=== PATIENT | male | born 1995 | race American Indian/Alaskan Native ===

== ENCOUNTER 2018-05-06 19:16 | Emergency (ER) | payer MEDICARE ==
[2018-05-06 19:42] VITALS: BP 128/86
[2018-05-06] MEDS ORDERED: PROVENTIL IH ONE (23:55)
--- NOTE | 2018-05-07 00:15 | Emergency Department Report ---
ED Shortness of Breath HPI - General Chief Complaint: Dyspnea/Respdistress Stated Complaint: SHORTNESS OF BREATH Time Seen by Provider: 05/06/18 23:56 Source: patient Mode of arrival: Ambulatory Limitations: No Limitations - History of Present Illness Initial Comments: Patient is a 22-year-old -Malaysian male with history of shortness of breath 3 days with wheezing visit patient is on albuterol inhaler for past month there is no fever no chills chest pain no nausea vomiting symptoms are exacerbated by environmental exposure symptoms are relieved by rest patient states minimal wheezing at this time to 2/ 10 however he cannot get albuterol inhaler until tomorrow Complaint: shortness of breath Onset/Timin -: week(s) Severity: mild, moderate Pain Scale: 1 Consistency: constant Improves With: rest Worsens With: other (environmental exposure ) Known History Of: asthma, other (bronchitis) Associated Symptoms: cough Treatments Prior to Arrival: none - Related Data Home Oxygen Therapy: No Previous Rx's Medication Instructions Recorded Last Taken Type ALBUTEROL Inhaler(NF) [VENTOLIN 1 puff IH QID PRN #1 inha 05/07/18 Unknown Rx Inhaler(NF)] Benzonatate [Tessalon Perle] 100 mg PO TID PRN #30 capsule 05/07/18 Unknown Rx predniSONE [Deltasone] 20 mg PO QDAY #5 tab 05/07/18 Unknown Rx Allergies Allergy/AdvReac Type Severity Reaction Status Date / Time No Known Allergies Allergy Unverified 05/06/18 19:42 ED Review of Systems ROS: Stated complaint: SHORTNESS OF BREATH Other details as noted in HPI Constitutional: denies: chills, fever Eyes: denies: eye pain, eye discharge, vision change ENT: congestion. denies: ear pain, throat pain Respiratory: cough, shortness of breath, wheezing Cardiovascular: denies: chest pain, palpitations Endocrine: no symptoms reported Gastrointestinal: denies: abdominal pain, nausea, diarrhea Genitourinary: denies: urgency, dysuria Musculoskeletal: denies: back pain, joint swelling, arthralgia Skin: denies: rash, lesions Neurological: denies: headache, weakness, paresthesias Psychiatric: denies: anxiety, depression Hematological/Lymphatic: denies: easy bleeding, easy bruising ED Past Medical Hx - Past Medical History Hx Psychiatric Treatment: Yes (bipolar,schizophrinic,) Hx Asthma: Yes - Social History Smoking Status: Current Every Day Smoker Substance Use Type: None - Medications Home Medications: Home Medications Medication Instructions Recorded Confirmed Last Taken Type ALBUTEROL Inhaler(NF) [VENTOLIN 1 puff IH QID PRN #1 inha 05/07/18 Unknown Rx Inhaler(NF)] Benzonatate [Tessalon Perle] 100 mg PO TID PRN #30 capsule 05/07/18 Unknown Rx predniSONE [Deltasone] 20 mg PO QDAY #5 tab 05/07/18 Unknown Rx ED Physical Exam - General Limitations: No Limitations General appearance: alert, in no apparent distress - Head Head exam: Present: atraumatic, normocephalic - Eye Eye exam: Present: normal appearance - ENT ENT exam: Present: normal orophraynx, mucous membranes moist, TM's normal bilaterally - Expanded ENT Exam Expanded Ear exam: Present: normal external inspection Mouth exam: Present: normal external inspection Teeth exam: Present: normal inspection Throat exam: Negative: tonsillar erythema, tonsillomegaly, tonsillar exudate, R peritonsillar mass, L peritonsillar mass - Neck Neck exam: Present: normal inspection, full ROM. Absent: tenderness, lymphadenopathy, thyromegaly - Respiratory Respiratory exam: Present: normal lung sounds bilaterally. Absent: respiratory distress, wheezes, stridor, chest wall tenderness - Cardiovascular Cardiovascular Exam: Present: regular rate, normal rhythm. Absent: systolic murmur, diastolic murmur, rubs, gallop - GI/Abdominal GI/Abdominal exam: Present: soft, normal bowel sounds. Absent: tenderness, bruit, hernia - Rectal Rectal exam: Present: deferred - Extremities Exam Extremities exam: Present: normal inspection - Back Exam Back exam: Present: normal inspection - Neurological Exam Neurological exam: Present: alert, oriented X3 - Psychiatric Psychiatric exam: Present: normal affect, normal mood - Skin Skin exam: Present: warm, dry, intact, normal color. Absent: rash ED Course Vital Signs 05/06/18 19:38 Temperature 98.7 F Pulse Rate 101 H Respiratory 18 Rate Blood Pressure 128/86 O2 Sat by Pulse 98 Oximetry ED Medical Decision Making - Medical Decision Making This is mild asthma versus bronchitis is no fever no chills no dyspnea on exertion this time also clear bilaterally no wheezing patient ambulated with provider from room to the ED back to room no increased shortness of breath plan albuterol neb 1 DC to home with refill of albuterol and prednisone burst patient will follow up PCP in 2-3 days for asthma management patient is currently NO 3 and laboratory with no acute distress at this time this is not an asthma attack Critical care attestation.: If time is entered above; I have spent that time in minutes in the direct care of this critically ill patient, excluding procedure time. ED Disposition Clinical Impression: Bronchitis, Medication refill Disposition: DC-01 TO HOME OR SELFCARE Is pt being admited?: No Does the pt Need Aspirin: No Condition: Good Instructions: Chronic Bronchitis (ED), Acute Bronchitis (ED) Prescriptions: ALBUTEROL Inhaler(NF) [VENTOLIN Inhaler(NF)] 1 puff IH QID PRN #1 inha PRN Reason: wheezing shortness of breath Benzonatate [Tessalon Perle] 100 mg PO TID PRN #30 capsule PRN Reason: cough predniSONE [Deltasone] 20 mg PO QDAY #5 tab Referrals: [facility] [Outside] - 3-5 Days Forms: Work/School Release Form(ED) Time of Disposition: 00:21
== END 2018-05-07 00:50 | disposition home or self-care (01) ==
LOC: ED 19:16
DX: J45.909 Unspecified asthma, uncomplicated (principal); Z76.0 Encounter for issue of repeat prescription; F31.9 Bipolar disorder, unspecified; F20.9 Schizophrenia, unspecified; F17.200 Nicotine dependence, unspecified, uncomplicated; Z79.899 Other long term (current) drug therapy
CPT/HCPCS: 94640

== ENCOUNTER 2018-09-15 17:41 | Emergency (ER) | payer MEDICARE ==
[2018-09-15 17:54] VITALS: BP 132/75
--- NOTE | 2018-09-15 20:06 | Emergency Department Report ---
ED Abdominal Pain HPI - General Chief Complaint: Abdominal Pain Stated Complaint: STOMACH PAIN Time Seen by Provider: 09/15/18 19:58 Source: patient Mode of arrival: Ambulatory Limitations: No Limitations - History of Present Illness Initial Comments: 23-year-old -Djib[place]ian male with a past medical history of HIV for the last 23 years comes in today for complaint of pain to the stomach that is diffuse and started at 5 PM today. Patient reports he is taking nothing for the pain. Patient reports that he saw his primary care provider did not have pain at that time. Patient reports he he has no diarrhea no nausea no vomiting but reports he has not had a bowel movement in a week. Patient reports this had similar issues in the past like this and is because he has not taken his HIV medication. Patient reports has not taken his HIV medicine today but took it yesterday. Patient does admit that he is not compliant on his HIV meds. Patient is unaware of his last CD4 count or his viral load. Patient reports he has no pain at this time. Does report his pain is intermittent. MD Complaint: abdominal pain -: This evening (1700) Location: diffuse Severity: mild (3/10) Severity scale (0 -10): 3 Quality: aching Improves With: nothing Worsens With: nothing Associated Symptoms: denies other symptoms Treatments Prior to Arrival: other (none) - Related Data Previous Rx's Medication Instructions Recorded Last Taken Type ALBUTEROL Inhaler(NF) [VENTOLIN 1 puff IH QID PRN #1 inha 05/07/18 Unknown Rx Inhaler(NF)] Benzonatate [Tessalon Perle] 100 mg PO TID PRN #30 capsule 05/07/18 Unknown Rx predniSONE [Deltasone] 20 mg PO QDAY #5 tab 05/07/18 Unknown Rx ALBUTEROL Inhaler (OR & NICU) 2 puff IH Q6H PRN #1 inhalation 05/10/18 Unknown Rx [ProAir HFA Inhaler] methylPREDNISolone [Medrol Dose 4 mg PO DAILY #1 tab.ds.pk 05/10/18 Unknown Rx Jaylen] HYDROcodone/APAP 5-325 [[place]ellington 1 each PO Q6HR PRN #10 tablet 08/03/18 Unknown Rx 5/325] Sulfamethoxazole/Trimethoprim 1 each PO BID #14 tablet 08/03/18 Unknown Rx [Bactrim DS TAB] Polyethylene Glycol 3350 [Miralax] 17 gm PO QDAY 10 Days #119 gram 09/15/18 Unknown Rx Allergies Allergy/AdvReac Type Severity Reaction Status Date / Time lemon Allergy Unknown Verified 05/15/18 08:36 [email or web address] Allergy Unknown Verified 05/15/18 08:36 Penicillins Allergy Rash Verified 05/15/18 08:36 pineapple Allergy Itching Verified 05/15/18 08:36 ED Review of Systems ROS: Stated complaint: STOMACH PAIN Other details as noted in HPI Comment: All other systems reviewed and negative Gastrointestinal: abdominal pain (intermittent), constipation (no bowel movement in a week) ED Past Medical Hx - Past Medical History Previous Medical History?: Yes Hx Hypertension: Yes Hx Headaches / Migraines: Yes Hx Psychiatric Treatment: Yes (bipolar,schizophrinic,) Hx Asthma: Yes Hx HIV: Yes - Surgical History Past Surgical History?: No Additional Surgical History: ear tubes - Social History Smoking Status: Current Every Day Smoker Substance Use Type: Marijuana - Medications Home Medications: Home Medications Medication Instructions Recorded Confirmed Last Taken Type ALBUTEROL Inhaler(NF) [VENTOLIN 1 puff IH QID PRN #1 inha 05/07/18 Unknown Rx Inhaler(NF)] Benzonatate [Tessalon Perle] 100 mg PO TID PRN #30 capsule 05/07/18 Unknown Rx predniSONE [Deltasone] 20 mg PO QDAY #5 tab 05/07/18 Unknown Rx ALBUTEROL Inhaler (OR & NICU) 2 puff IH Q6H PRN #1 inhalation 05/10/18 Unknown Rx [ProAir HFA Inhaler] methylPREDNISolone [Medrol Dose 4 mg PO DAILY #1 tab.ds.pk 05/10/18 Unknown Rx Jaylen] HYDROcodone/APAP 5-325 [Wellington 1 each PO Q6HR PRN #10 tablet 08/03/18 Unknown Rx 5/325] Sulfamethoxazole/Trimethoprim 1 each PO BID #14 tablet 08/03/18 Unknown Rx [Bactrim DS TAB] Polyethylene Glycol 3350 [Miralax] 17 gm PO QDAY 10 Days #119 gram 09/15/18 Unknown Rx ED Physical Exam - General Limitations: No Limitations General appearance: alert, in no apparent distress - Head Head exam: Present: atraumatic, normocephalic - Eye Eye exam: Present: normal appearance - ENT ENT exam: Present: mucous membranes moist - Neck Neck exam: Present: normal inspection - Respiratory Respiratory exam: Present: normal lung sounds bilaterally. Absent: respiratory distress - Cardiovascular Cardiovascular Exam: Present: regular rate, normal rhythm. Absent: systolic murmur, diastolic murmur, rubs, gallop - GI/Abdominal GI/Abdominal exam: Present: soft, normal bowel sounds. Absent: distended, tenderness - Rectal Rectal exam: Present: deferred - Extremities Exam Extremities exam: Present: normal inspection - Back Exam Back exam: Present: normal inspection - Neurological Exam Neurological exam: Present: alert, oriented X3, normal gait - Psychiatric Psychiatric exam: Present: normal affect, normal mood - Skin Skin exam: Present: warm, dry, intact, normal color. Absent: rash ED Course Vital Signs 09/15/18 17:49 Temperature 98.1 F Pulse Rate 79 Respiratory 16 Rate Blood Pressure 132/75 O2 Sat by Pulse 99 Oximetry ED Medical Decision Making - Medical Decision Making Patient has been evaluated by this provider in fast track. Discussed the patient I will place him on MiraLAX to take on a daily basis until he starts moving his bowels. I discussed the patient to follow up with his primary care provider and to take his HIV medications on a daily basis as prescribed. Discussed the patient he needs to follow back up with his PCP if he continues to have abdominal pains. Critical care attestation.: If time is entered above; I have spent that time in minutes in the direct care of this critically ill patient, excluding procedure time. ED Disposition Clinical Impression: Abdominal pain in male Disposition: DC-01 TO HOME OR SELFCARE Is pt being admited?: No Does the pt Need Aspirin: No Condition: Stable Instructions: Abdominal Pain (ED) Additional Instructions: Please take MiraLAX as prescribed. It's very important for him to take all your chronic medication including the Genvoya. Follow-up with your infectious disease provider. Prescriptions: Polyethylene Glycol 3350 [Miralax] 17 gm PO QDAY 10 Days #119 gram Referrals: Your,Provider [Other] - 3-5 Days
[2018-09-15 20:56] LABS: Bilirubin,Urine NEG (Negative); Blood,Urine NEG (Negative); Color,Urine Yellow (Yellow); Mucus,Urine FEW /HPF; Protein,Urine <15 mg/dL mg/dL (Negative)
== END 2018-09-15 21:21 | disposition home or self-care (01) ==
LOC: ED 17:41
DX: R10.84 Generalized abdominal pain (principal); K59.00 Constipation, unspecified; I10 Essential (primary) hypertension; G43.909 Migraine, unspecified, not intractable, without status migrainosus; J45.909 Unspecified asthma, uncomplicated; F31.9 Bipolar disorder, unspecified; F20.9 Schizophrenia, unspecified; Z91.018 Allergy to other foods
CPT/HCPCS: 81001; 99283

== ENCOUNTER 2018-10-10 15:34 | Emergency (ER) | payer MEDICARE ==
--- NOTE | 2018-10-10 19:56 | Emergency Department Report ---
ED GI Bleed HPI - General Chief complaint: GI Bleed Stated complaint: BLEEDING/BOTTOM Time Seen by Provider: 10/10/18 19:30 Source: patient Mode of arrival: Ambulatory Limitations: No Limitations - History of Present Illness Initial comments: Patient is a 23-year-old -Thai male presents for GI bleed times a day states bright red blood per rectum with feces patient denies nausea vomiting complains of 3/10 abdominal pain and cramping denies history of hemorrhoids and no fever no chills patient denies EtOH abuse is not a smoker symptoms are e xacerbated by bowel movement symptoms are relieved by nothing tried. complaint: blood on toilet paper, blood streaked stool Onset/Timin -: days(s) Location: periumbilical Radiation: LLQ Severity scale (0 -10): 3 Quality: cramping Consistency: constant Improves with: none Worsens with: bowel movement Associated Symptoms: abdominal pain. denies: nausea, vomiting, epistaxis, fever/chills Treatments Prior to Arrival: none - Related Data Previous Rx's Medication Instructions Recorded Last Taken Type ALBUTEROL Inhaler (OR & NICU) 2 puff IH Q6H PRN #1 inhalation 05/10/18 Unknown Rx [ProAir HFA Inhaler] HYDROcodone/APAP 5-325 [Dresser 1 each PO Q6HR PRN #10 tablet 08/03/18 Unknown Rx 5/325] Polyethylene Glycol 3350 [Miralax] 17 gm PO QDAY 10 Days #119 gram 09/15/18 Unknown Rx Bisacodyl [Dulcolax suppos] 10 mg VA ONCE PRN 5 Days #5 10/10/18 Unknown Rx supp.rect Polyethylene Glycol 3350 [Miralax 17 gm PO BID PRN #14 packet 10/10/18 Unknown Rx 3350] Allergies Allergy/AdvReac Type Severity Reaction Status Date / Time lemon Allergy Unknown Verified 10/10/18 16:06 [place] Allergy Unknown Verified 10/10/18 16:06 Penicillins Allergy Rash Verified 10/10/18 16:06 pineapple Allergy Itching Verified 10/10/18 16:06 ED Review of Systems ROS: Stated complaint: BLEEDING/BOTTOM Other details as noted in HPI Constitutional: denies: chills, fever Eyes: denies: eye pain, eye discharge, vision change ENT: denies: ear pain, throat pain Respiratory: denies: cough, shortness of breath, wheezing Cardiovascular: denies: chest pain, palpitations Endocrine: no symptoms reported Gastrointestinal: abdominal pain, other (blood streaked stools ). denies: nausea, vomiting, diarrhea Genitourinary: denies: urgency, dysuria Musculoskeletal: denies: back pain, joint swelling, arthralgia Skin: denies: rash, lesions Neurological: denies: headache, weakness, paresthesias Psychiatric: denies: anxiety, depression Hematological/Lymphatic: denies: easy bleeding, easy bruising ED Past Medical Hx - Past Medical History Previous Medical History?: Yes Hx Hypertension: Yes Hx Headaches / Migraines: Yes Hx Psychiatric Treatment: Yes (bipolar,schizophrinic,) Hx Asthma: Yes Hx HIV: Yes - Surgical History Past Surgical History?: Yes Additional Surgical History: ear tubes - Social History Smoking Status: Never Smoker Substance Use Type: None - Medications Home Medications: Home Medications Medication Instructions Recorded Confirmed Last Taken Type ALBUTEROL Inhaler (OR & NICU) 2 puff IH Q6H PRN #1 inhalation 05/10/18 09/20/18 Unknown Rx [ProAir HFA Inhaler] HYDROcodone/APAP 5-325 [Dresser 1 each PO Q6HR PRN #10 tablet 08/03/18 09/20/18 Unknown Rx 5/325] Polyethylene Glycol 3350 [Miralax] 17 gm PO QDAY 10 Days #119 gram 09/15/1802/01 Unknown Rx Bisacodyl [Dulcolax suppos] 10 mg VA ONCE PRN 5 Days #5 10/10/18 Unknown Rx supp.rect Polyethylene Glycol 3350 [Miralax 17 gm PO BID PRN #14 packet 10/10/18 Unknown Rx 3350] ED Physical Exam - General Limitations: No Limitations General appearance: alert, in no apparent distress - Head Head exam: Present: atraumatic, normocephalic - Eye Eye exam: Present: normal appearance - ENT ENT exam: Present: mucous membranes moist - Neck Neck exam: Present: normal inspection - Respiratory Respiratory exam: Present: normal lung sounds bilaterally. Absent: respiratory distress - Cardiovascular Cardiovascular Exam: Present: regular rate, normal rhythm, normal heart sounds. Absent: systolic murmur, diastolic murmur, rubs, gallop - GI/Abdominal GI/Abdominal exam: Present: soft, tenderness (periumibilical tenderness ), normal bowel sounds. Absent: guarding, rebound, rigid, bruit, hernia - Rectal Rectal exam: Present: deferred, normal inspection, normal rectal tone, heme (+) stool, normal prostate. Absent: black stool, fecal impaction, hemorrhoids, mass, tenderness - exam: Present: normal inspection - Extremities Exam Extremities exam: Present: normal inspection - Back Exam Back exam: Present: normal inspection, full ROM. Absent: tenderness, CVA tenderness (R), CVA tenderness (L), muscle spasm - Neurological Exam Neurological exam: Present: alert, oriented X3, CN II-XII intact, normal gait, reflexes normal - Psychiatric Psychiatric exam: Present: normal affect, normal mood - Skin Skin exam: Present: warm, dry, intact, normal color. Absent: rash ED Course Vital Signs 10/10/18 16:06 Temperature 98.8 F Pulse Rate 79 Respiratory 18 Rate Blood Pressure 119/89 O2 Sat by Pulse 98 Oximetry ED Medical Decision Making - Lab Data Result diagrams: 10/10/18 19:37 10/10/18 19:37 - Radiology Data Radiology results: report reviewed, image reviewed FINAL REPORT EXAM: CT ABDOMEN PELVIS W CON HISTORY: abd pain GI bleed TECHNIQUE: Dynamic helical CT scan through the abdomen and pelvis during and again after intravenous injection of iodinated contrast. Images are reconstructed in the sagittal and coronal planes. Oral contrast was not given. PRIORS: None. FINDINGS: The lung bases are clear. The liver, gallbladder, pancreas, spleen and adrenal glands appear normal. The kidneys appear normal. The pelvic organs appear grossly normal. The stomach appears grossly within normal limits. There are no abnormally dilated loops of bowel or acute inflammatory changes. There is a relatively large amount of stool throughout the colon. A normal-appearing appendix is identified. The abdominal aorta has a normal diameter. The bones and subcutaneous soft tissues are unremarkable for age. IMPRESSION: 1. Findings suggest constipation. 2. Otherwise, no acute findings in the abdomen/pelvis Transcribed By: WALESKA Dictated By: REKHA STEELE MD Electronically Authenticated By: REKHA STEELE MD Signed Date/Time: 10/10/18 2150 - Medical Decision Making CT abdomen and pelvis suggestive of constipation labs are normal plan MiraLAX Dulcolax suppositories follow up with PCP in 2-3 days return to emergency should symptoms worsen . There are no hemorrhoids noted to rectal exam guaiac negative for blood Patient verbalized agreement and understanding with same. Critical care attestation.: If time is entered above; I have spent that time in minutes in the direct care of this critically ill patient, excluding procedure time. ED Disposition Clinical Impression: Constipation Qualifiers: Constipation type: unspecified constipation type Qualified Code(s): K59.00 - Constipation, unspecified Abdominal pain Qualifiers: Abdominal location: generalized Qualified Code(s): R10.84 - Generalized abdominal pain Disposition: TO HOME OR SELFCARE Is pt being admited?: No Does the pt Need Aspirin: No Condition: Stable Instructions: Constipation (ED), High Fiber Diet (ED), Abdominal Pain (ED) Prescriptions: Bisacodyl [Dulcolax suppos] 10 mg VA ONCE PRN 5 Days #5 supp.rect PRN Reason: Constipation Polyethylene Glycol 3350 [Miralax 3350] 17 gm PO BID PRN #14 packet PRN Reason: Constipation Referrals: [facility] [Other] - 3-5 Days Forms: Accompanied Note, Work/School Release Form(ED) Time of Disposition: 22:09
[2018-10-10 19:57] LABS: Hematocrit 44.1 % (35.5-45.6); Hemoglobin 14.5 gm/dl (11.8-15.2); Mean Corpuscular HGB Conc 33 % (32-34); Mean Corpuscular Volume 92 fl (84-94); Platelet Count 151 K/mm3 (140-440); Red Blood Count 4.78 M/mm3 (3.65-5.03); Red Cell Distribution Width 15.1 % (13.2-15.2)
[2018-10-10 20:06] LABS: INR 0.92 (0.87-1.13)
[2018-10-10 20:07] LABS: Partial Thromboplastin Time 28.7 Sec. (24.2-36.6)
[2018-10-10 20:17] LABS: Alanine Aminotransferase 23 units/L (7-56); Albumin 4.6 g/dL (3.9-5); BUN/Creatinine Ratio 13; Blood Urea Nitrogen 12 mg/dL (9-20); Calcium 9.4 mg/dL (8.4-10.2); Hemolysis Index 8
[2018-10-10 20:56] LABS: Basophils % (Manual) 0 % (0.0-1.8); Total Cells Counted 100
[2018-10-10 20:58] LABS: Anisocytosis Few; Poikilocytosis Few
--- NOTE | 2018-10-10 21:50 | Cat Scan Report ---
FINAL REPORT EXAM: CT ABDOMEN PELVIS W CON HISTORY: abd pain GI bleed TECHNIQUE: Dynamic helical CT scan through the abdomen and pelvis during and again after intravenous injection of iodinated contrast. Images are reconstructed in the sagittal and coronal planes. Oral c ontrast was not given. PRIORS: None. FINDINGS: The lung bases are clear. The liver, gallbladder, pancreas, spleen and adrenal glands appear normal. The kidneys appear normal. The pelvic organs appear grossly normal. The stomach appears grossly within normal limits. There are no abnormally dilated loops of bowel or acute inflammatory changes. There is a relatively l arge amount of stool throughout the colon. A normal-appearing appendix is identified. The abdominal aorta has a normal diameter. The bones and subcutaneous soft tissues are unremarkable for age. IMPRESSION: 1. Findings suggest constipation. 2. Otherwise, no acute findings in the abdomen/pelvis
[2018-10-10 22:20] VITALS: BP 126/84
== END 2018-10-10 22:18 | disposition home or self-care (01) ==
LOC: ED 15:34
DX: K59.00 Constipation, unspecified (principal); I10 Essential (primary) hypertension; G43.909 Migraine, unspecified, not intractable, without status migrainosus; F31.9 Bipolar disorder, unspecified; F20.9 Schizophrenia, unspecified; Z91.018 Allergy to other foods
CPT/HCPCS: 36415; 74177; 80053; 83690; 85007; 85025; 85610; 85730; 99284; Q9967

== ENCOUNTER 2018-11-11 11:35 | Emergency (ER) | payer MEDICARE ==
[2018-11-11 11:43] VITALS: BP 143/98
--- NOTE | 2018-11-11 11:48 | Emergency Department Report ---
Blank Doc - Documentation Documentation: This is a 23 y.o. male that presents with chest pain and cough. PMH of asthma, HIV, HTN, bipolar, and schizophrenia. He reports discomfort to chest with cough. Ordered: CXR Fast track for further evaluation.
--- NOTE | 2018-11-11 13:08 | XRay Report ---
ROUTINE CHEST, TWO VIEWS: HISTORY: Cough. The trachea, heart, mediastinal contour, lung weeks and bony thorax are unremarkable. IMPRESSION: Unremarkable chest x-ray.
--- NOTE | 2018-11-11 14:30 | Emergency Department Report ---
- General Chief Complaint: Upper Respiratory Infection Stated Complaint: CHEST PAIN/FLU LIKE Time Seen by Provider: 11/11/18 11:45 Source: patient Mode of arrival: Ambulatory Limitations: No Limitations - History of Present Illness Initial Comments: 23-year-old male with history of asthma, HIV presents to ED with complaint of flu-like symptoms times one day. Patient reports cough, chest pain with cough, body aches, runny nose. Denies fever, vomiting, diarrhea. MD Complaint: cough, rhinorrhea -: days(s) (1) Severity: mild Consistency: constant Improves With: nothing Worsens With: nothing Associated Symptoms: myalgias, rhinorrhea, nasal congestion, cough, chest pain. denies: fever, chills, shortness of breath, vomiting, diarrhea - Related Data Previous Rx's Medication Instructions Recorded Last Taken Type ALBUTEROL Inhaler (OR & NICU) 2 puff IH Q6H PRN #1 inhalation 05/10/18 Unknown Rx [ProAir HFA Inhaler] HYDROcodone/APAP 5-325 [[place] 1 each PO Q6HR PRN #10 tablet 08/03/18 Unknown Rx 5/325] Polyethylene Glycol 3350 [Miralax] 17 gm PO QDAY 10 Days #119 gram 09/15/18 Unknown Rx Bisacodyl [Dulcolax suppos] 10 mg IN ONCE PRN 5 Days #5 10/10/18 Unknown Rx supp.rect Polyethylene Glycol 3350 [Miralax 17 gm PO BID PRN #14 packet 10/10/18 Unknown Rx 3350] Benzonatate [Tessalon Perles] 100 mg PO Q8HR PRN #20 capsule 11/11/18 Unknown Rx Naproxen [Naprosyn] 500 mg PO BID #20 tablet 11/11/18 Unknown Rx Ondansetron [Zofran Odt] 4 mg PO Q8HR PRN #20 tab.rapdis 11/11/18 Unknown Rx Oseltamivir [Tamiflu] 75 mg PO BID 5 Days #10 cap 11/11/18 Unknown Rx Allergies Allergy/AdvReac Type Severity Reaction Status Date / Time lemon Allergy Unknown Verified 11/11/18 11:46 [place] Allergy Unknown Verified 11/11/18 11:46 Penicillins Allergy Rash Verified 11/11/18 11:46 pineapple Allergy Itching Verified 11/11/18 11:46 ED Review of Systems ROS: Stated complaint: CHEST PAIN/FLU LIKE Other details as noted in HPI Comment: All other systems reviewed and negative Constitutional: denies: chills, fever ENT: congestion Respiratory: cough Cardiovascular: chest pain (with cough) Gastrointestinal: denies: vomiting, diarrhea Musculoskeletal: myalgia ED Past Medical Hx - Past Medical History Previous Medical History?: Yes Hx Hypertension: Yes Hx Headaches / Migraines: Yes Hx Psychiatric Treatment: Yes (bipolar,schizophrinic,) Hx Asthma: Yes Hx HIV: Yes - Surgical History Past Surgical History?: Yes Additional Surgical History: ear tubes - Social History Smoking Status: Never Smoker Substance Use Type: Alcohol - Medications Home Medications: Home Medications Medication Instructions Recorded Confirmed Last Taken Type ALBUTEROL Inhaler (OR & NICU) 2 puff IH Q6H PRN #1 inhalation 05/10/18 09/20/18 Unknown Rx [ProAir HFA Inhaler] HYDROcodone/APAP 5-325 [[place] 1 each PO Q6HR PRN #10 tablet 08/03/18 09/20/18 Unknown Rx 5/325] Polyethylene Glycol 3350 [Miralax] 17 gm PO QDAY 10 Days #119 gram 09/15/18 09/20/18 Unknown Rx Bisacodyl [Dulcolax suppos] 10 mg IN ONCE PRN 5 Days #5 10/10/18 Unknown Rx supp.rect Polyethylene Glycol 3350 [Miralax 17 gm PO BID PRN #14 packet 10/10/18 Unknown Rx 3350] Benzonatate [Tessalon Perles] 100 mg PO Q8HR PRN #20 capsule 11/11/18 Unknown Rx Naproxen [Naprosyn] 500 mg PO BID #20 tablet 11/11/18 Unknown Rx Ondansetron [Zofran Odt] 4 mg PO Q8HR PRN #20 tab.rapdis 11/11/18 Unknown Rx Oseltamivir [Tamiflu] 75 mg PO BID 5 Days #10 cap 11/11/18 Unknown Rx ED Physical Exam - General Limitations: No Limitations General appearance: alert, in no apparent distress - Head Head exam: Present: atraumatic, normocephalic - Eye Eye exam: Present: normal appearance - ENT ENT exam: Present: mucous membranes moist - Neck Neck exam: Present: normal inspection - Respiratory Respiratory exam: Present: normal lung sounds bilaterally. Absent: respiratory distress, wheezes, rales, rhonchi - Cardiovascular Cardiovascular Exam: Present: regular rate, normal rhythm - GI/Abdominal GI/Abdominal exam: Present: soft. Absent: distended - Extremities Exam Extremities exam: Present: normal inspection - Neurological Exam Neurological exam: Present: alert, oriented X3 - Psychiatric Psychiatric exam: Present: normal affect, normal mood - Skin Skin exam: Present: warm, dry, intact, normal color ED Course Vital Signs 11/11/18 11:42 Temperature 98.5 F Pulse Rate 86 Respiratory 18 Rate Blood Pressure 143/98 [Right] O2 Sat by Pulse 99 Oximetry ED Medical Decision Making - Radiology Data Radiology results: report reviewed, image reviewed - Medical Decision Making 23-year-old male with asthma and HIV presents to ED with flulike symptoms since yesterday. Vitals normal. Appears nontoxic. Chest x-ray normal. Will treat empirically with Tamiflu due to his HIV status. Also prescribed Zofran for possible GI side effects, Tessalon pearls, and Naprosyn. Outpatient follow-up advised. Return precautions given. - Differential Diagnosis influenza, pneumonia, URI Critical care attestation.: If time is entered above; I have spent that time in minutes in the direct care of this critically ill patient, excluding procedure time. ED Disposition Clinical Impression: URI (upper respiratory infection) Disposition: TO HOME OR SELFCARE Is pt being admited?: No Condition: Stable Instructions: Influenza (ED), Upper Respiratory Infection (ED) Prescriptions: Benzonatate [Tessalon Perles] 100 mg PO Q8HR PRN #20 capsule PRN Reason: Cough Naproxen [Naprosyn] 500 mg PO BID #20 tablet Ondansetron [Zofran Odt] 4 mg PO Q8HR PRN #20 tab.rapdis PRN Reason: Vomiting Oseltamivir [Tamiflu] 75 mg PO BID 5 Days #10 cap Referrals: [facility] [Provider Group] - 3-5 Days PRIMARY CARE, [Referring] - 3-5 Days Time of Disposition: 14:31
== END 2018-11-11 14:45 | disposition home or self-care (01) ==
LOC: ED 11:35
DX: J06.9 Acute upper respiratory infection, unspecified (principal); I10 Essential (primary) hypertension; G43.909 Migraine, unspecified, not intractable, without status migrainosus; F31.9 Bipolar disorder, unspecified; J45.909 Unspecified asthma, uncomplicated; Z79.899 Other long term (current) drug therapy; Z91.018 Allergy to other foods; Z88.0 Allergy status to penicillin
CPT/HCPCS: 71046; 99283

== ENCOUNTER 2018-11-19 21:33 | Emergency (ER) | payer MEDICARE ==
--- NOTE | 2018-11-19 22:04 | Emergency Department Report ---
Blank Doc - Documentation Documentation: This is a 23-year-old male that presents with URI symptoms. This initial assessment/diagnostic orders/clinical plan/treatment(s) is/are subject to change based on patient's health status, clinical progression and re- assessment by fellow clinical providers in the ED. Further treatment and workup at subsequent clinical providers discretion. Patient/guardians urged not to elope from the ED as their condition may be serious if not clinically assessed and managed. Initial orders include: 1- Patient sent to [facility] for further evaluation and treatment 2- CXR
[2018-11-19 22:07] VITALS: BP 127/80
--- NOTE | 2018-11-19 23:13 | XRay Report ---
PROCEDURE: XR CHEST ROUTINE 2V TECHNIQUE: PA and lateral chest radiographs were obtained. HISTORY: cough COMPARISONS: 08/03/2018. FINDINGS: Heart: Normal. Mediastinum/Vessels: Normal. Lungs/Pleural space: Normal. Bony thorax: No acute osseous abnormality. IMPRESSION: Normal examination. This document is electronically signed by Matt Hall MD., November 19 2018 11:10:45 PM ET
--- NOTE | 2018-11-20 01:03 | Emergency Department Report ---
- General Chief Complaint: Upper Respiratory Infection Stated Complaint: CHEST PAIN FLU SX Time Seen by Provider: 11/19/18 22:04 Source: patient Mode of arrival: Ambulatory Limitations: No Limitations - History of Present Illness Initial Comments: Pt is a 23 yo male who presents with a nonproductive cough for a week. He has associated rhinorrhea and congestion. The patient denies any fever, SOB, wheezing, sore throat, or ear ache. The patient states he has a PMHx of asthma and uses an albuterol inhaler. He states his asthma has been under control. MD Complaint: cough Onset/Timin -: week(s) Severity: mild Associated Symptoms: rhinorrhea, nasal congestion, cough. denies: fever, chills, myalgias, diaphoresis, headache, sore throat, shortness of breath, ear pain - Related Data Previous Rx's Medication Instructions Recorded Last Taken Type ALBUTEROL Inhaler (OR & NICU) 2 puff IH Q6H PRN #1 inhalation 05/10/18 Unknown Rx [ProAir HFA Inhaler] Polyethylene Glycol 3350 [Miralax] 17 gm PO QDAY 10 Days #119 gram 09/15/18 Unknown Rx Bisacodyl [Dulcolax suppos] 10 mg [place] ONCE PRN 5 Days #5 10/10/18 Unknown Rx supp.rect Polyethylene Glycol 3350 [Miralax 17 gm PO BID PRN #14 packet 10/10/18 Unknown Rx 3350] Naproxen [Naprosyn TAB] 500 mg PO BID #20 tablet 11/11/18 Unknown Rx Ondansetron [Zofran ODT TAB] 4 mg PO Q8HR PRN #20 tab.rapdis 11/11/18 Unknown Rx Benzonatate [Tessalon Perles] 100 mg PO Q8HR PRN #20 capsule 11/20/18 Unknown Rx guaiFENesin [Mucinex] 600 mg PO DAILY #30 tab.er.12h 11/20/18 Unknown Rx Allergies Allergy/AdvReac Type Severity Reaction Status Date / Time lemon Allergy Unknown Verified 11/11/18 11:46 [email or web address] Allergy Unknown Verified 11/11/18 11:46 Penicillins Allergy Rash Verified 11/11/18 11:46 pineapple Allergy Itching Verified 11/11/18 11:46 ED Review of Systems ROS: Stated complaint: CHEST PAIN FLU SX Other details as noted in HPI Comment: All other systems reviewed and negative ED Past Medical Hx - Past Medical History Hx Hypertension: Yes Hx Headaches / Migraines: Yes Hx Psychiatric Treatment: Yes (bipolar,schizophrinic,) Hx Asthma: Yes Hx HIV: Yes - Surgical History Additional Surgical History: ear tubes - Social History Smoking Status: Never Smoker Substance Use Type: None - Medications Home Medications: Home Medications Medication Instructions Recorded Confirmed Last Taken Type ALBUTEROL Inhaler (OR & NICU) 2 puff IH Q6H PRN #1 inhalation 05/10/18 09/20/18 Unknown Rx [ProAir HFA Inhaler] Polyethylene Glycol 3350 [Miralax] 17 gm PO QDAY 10 Days #119 gram 09/15/18 09/20/18 Unknown Rx Bisacodyl [Dulcolax suppos] 10 mg [place] ONCE PRN 5 Days #5 10/10/18 Unknown Rx supp.rect Polyethylene Glycol 3350 [Miralax 17 gm PO BID PRN #14 packet 10/10/18 Unknown Rx 3350] Naproxen [Naprosyn TAB] 500 mg PO BID #20 tablet 11/11/18 Unknown Rx Ondansetron [Zofran ODT TAB] 4 mg PO Q8HR PRN #20 tab.rapdis 11/11/18 Unknown Rx Benzonatate [Tessalon Perles] 100 mg PO Q8HR PRN #20 capsule 11/20/18 Unknown Rx guaiFENesin [Mucinex] 600 mg PO DAILY #30 tab.er.12h 11/20/18 Unknown Rx ED Physical Exam - General Limitations: No Limitations General appearance: alert, in no apparent distress - Head Head exam: Present: atraumatic, normocephalic - Eye Eye exam: Present: normal appearance - ENT ENT exam: Present: normal exam, normal orophraynx, mucous membranes moist (bilateral nasal turbinates are normal ) - Neck Neck exam: Present: normal inspection - Respiratory Respiratory exam: Present: normal lung sounds bilaterally. Absent: respiratory distress, wheezes, rales, rhonchi, stridor, chest wall tenderness, accessory muscle use, decreased breath sounds, prolonged expiratory - Cardiovascular Cardiovascular Exam: Present: regular rate, normal rhythm, normal heart sounds. Absent: systolic murmur, rubs, gallop - Neurological Exam Neurological exam: Present: alert, oriented X3 - Psychiatric Psychiatric exam: Present: normal affect, normal mood - Skin Skin exam: Present: warm, dry, intact ED Course Vital Signs 11/19/18 22:05 Temperature 98.1 F Pulse Rate 54 L Respiratory 16 Rate Blood Pressure 127/80 O2 Sat by Pulse 99 Oximetry ED Medical Decision Making - Radiology Data Radiology results: report reviewed, image reviewed CXR no acute process - Medical Decision Making Pt presents to ED for dry cough, rhinorrhea, and congestion. Physical examination is normal. Pt has hx of asthma states he does not need refill for his inhaler. No SOB no wheezing no fever. Will send home with mucinex and cough suppressant to use at night. Advised to follow up with PCP in the next 2-3 days. Advised to return to ED if new/worsening sx. Critical care attestation.: If time is entered above; I have spent that time in minutes in the direct care of this critically ill patient, excluding procedure time. ED Disposition Clinical Impression: URI (upper respiratory infection) Qualifiers: URI type: unspecified viral URI Qualified Code(s): J06.9 - Acute upper respiratory infection, unspecified Disposition: TO HOME OR SELFCARE Is pt being admited?: No Does the pt Need Aspirin: No Condition: Stable Instructions: Upper Respiratory Infection (ED) Additional Instructions: Follow up with PCP in the next 2-3 days. Return to emergency department if any new or worsening symptoms Prescriptions: guaiFENesin [Mucinex] 600 mg PO DAILY #30 tab.er.12h Benzonatate [Tessalon Perles] 100 mg PO Q8HR PRN #20 capsule PRN Reason: Cough Referrals: SHERON SWAN MD [Primary Care Provider] - 3-5 Days Time of Disposition: 01:11 Print Language: CZECH
== END 2018-11-20 01:15 | disposition home or self-care (01) ==
LOC: ED 21:33
DX: J06.9 Acute upper respiratory infection, unspecified (principal); I10 Essential (primary) hypertension; G43.909 Migraine, unspecified, not intractable, without status migrainosus; F31.9 Bipolar disorder, unspecified; F20.9 Schizophrenia, unspecified; J45.909 Unspecified asthma, uncomplicated; Z91.018 Allergy to other foods; Z88.0 Allergy status to penicillin
CPT/HCPCS: 71046; 93005; 93010; 99283

== ENCOUNTER 2019-02-02 15:55 | Emergency (ER) | payer MEDICARE ==
--- NOTE | 2019-02-02 16:33 | Emergency Department Report ---
Blank Doc - Documentation Documentation: This is a 23-year-old male that presents with abdominal pain with no n/v. Den ies any pain radiation. This initial assessment/diagnostic orders/clinical plan/treatment(s) is/are subject to change based on patient's health status, clinical progression and re- assessment by fellow clinical providers in the ED. Further treatment and workup at subsequent clinical providers discretion. Patient/guardians urged not to elope from the ED as their condition may be serious if not clinically assessed and managed. Initial orders include: 1- Patient sent to [facility] for further evaluation and treatment 2- labs 3- UA 4-Xr abd
[2019-02-02 16:37] VITALS: BP 152/96
[2019-02-02 17:48] LABS: Bilirubin,Urine NEG (Negative); Blood,Urine NEG (Negative); Color,Urine Yellow (Yellow); Mucus,Urine FEW /HPF; Protein,Urine <15 mg/dL mg/dL (Negative); WBC,Urine < 1.0 /HPF (0.0-6.0)
[2019-02-02 17:50] LABS: Basophils % (Auto) 0.6 % (0.0-1.8); Eosinophils # (Auto) 0.1 K/mm3 (0.0-0.4); Eosinophils % (Auto) 2.4 % (0.0-4.3); Hematocrit 40.5 % (35.5-45.6); Lymphocytes # (Auto) 2.2 K/mm3 (1.2-5.4); Lymphocytes % (Auto) 39.6 % (13.4-35.0); Mean Corpuscular HGB Conc 35 % (32-34); Mean Corpuscular Volume 94 fl (84-94); Monocytes # (Auto) 0.4 K/mm3 (0.0-0.8); Monocytes % (Auto) 7.7 % (0.0-7.3); Platelet Count 174 K/mm3 (140-440); Red Blood Count 4.34 M/mm3 (3.65-5.03); Red Cell Distribution Width 13.4 % (13.2-15.2)
[2019-02-02 18:11] LABS: Alanine Aminotransferase 19 units/L (7-56); Albumin 4.8 g/dL (3.9-5); BUN/Creatinine Ratio 16; Blood Urea Nitrogen 16 mg/dL (9-20); Calcium 9.5 mg/dL (8.4-10.2); Hemolysis Index 2
[2019-02-02 18:12] LABS: Bilirubin,Direct < 0.2 mg/dL (0-0.2)
--- NOTE | 2019-02-02 18:18 | XRay Report ---
PROCEDURE: XR ABD SERIES W CXR 1V HISTORY: abd pain FINDINGS: Frontal view of the chest was acquired as well as supine and erect views of the abdomen. The heart is normal in size. The lungs appear clear. In the abdomen, stool is present within the ascending colon hepatic flexure of colon and proximal will cending colon. The patient may be mildly constipated. There is no free air. IMPRESSION: No active disease in the chest Bowel obstruction Mild constipation This document is electronically signed by Abiodun Aguilar MD., Feb 02 2019 06:16:16 PM ET
--- NOTE | 2019-02-02 21:09 | Emergency Department Report ---
ED Abdominal Pain HPI - General Chief Complaint: Abdominal Pain Stated Complaint: ABD PAIN Time Seen by Provider: 02/02/19 16:33 Source: patient Mode of arrival: Ambulatory Limitations: No Limitations - History of Present Illness Initial Comments: 23-year-old -[place] male comes in complaining of abdominal pain that started this a.m. Patient states that he went to his primary care provider this morning A gradient in he was told it might be rhabdomyolysis. Patient has a history of HIV, schizophrenia, bipolar. Patient denies any nausea no vomiting. He reports that his stomach aches and is constant. Patient reports that he is on Invega injections, Seroquel 300 mg daily at bedtime and Suboxone 16 mg daily. Patient reports that his last BM was yesterday. Patient reports that his abdominal pain is diffuse. Patient does have an allergy to penicillin, pineapples, L[place], lemon. MD Complaint: abdominal pain -: This morning Location: diffuse Radiation: none Severity scale (0 -10): 8 Quality: aching Consistency: constant Improves With: nothing Worsens With: nothing Associated Symptoms: denies other symptoms - Related Data Previous Rx's Medication Instructions Recorded Last Taken Type ALBUTEROL Inhaler (OR & NICU) 2 puff IH Q6H PRN #1 inhalation 05/10/18 Unknown Rx [ProAir HFA Inhaler] Bisacodyl [Dulcolax suppos] 10 mg [place] ONCE PRN 5 Days #5 10/10/18 Unknown Rx supp.rect Polyethylene Glycol 3350 [Miralax 17 gm PO BID PRN #14 packet 10/10/18 Unknown Rx 3350] Naproxen [Naprosyn TAB] 500 mg PO BID #20 tablet 11/11/18 Unknown Rx Ondansetron [Zofran ODT TAB] 4 mg PO Q8HR PRN #20 tab.rapdis 11/11/18 Unknown Rx Benzonatate [Tessalon Perles] 100 mg PO Q8HR PRN #20 capsule 11/20/18 Unknown Rx guaiFENesin [Mucinex] 600 mg PO DAILY #30 tab.er.12h 11/20/18 Unknown Rx Polyethylene Glycol 3350 [Miralax] 17 gm PO QDAY 10 Days #119 gram 02/02/19 Unknown Rx Allergies Allergy/AdvReac Type Severity Reaction Status Date / Time lemon Allergy Unknown Verified 11/11/18 11:46 [place] Allergy Unknown Verified 11/11/18 11:46 Penicillins Allergy Rash Verified 11/11/18 11:46 pineapple Allergy Itching Verified 11/11/18 11:46 ED Review of Systems ROS: Stated complaint: ABD PAIN Other details as noted in HPI Constitutional: denies: chills, fever Eyes: denies: eye pain, eye discharge, vision change ENT: as per HPI Respiratory: no symptoms reported Cardiovascular: as per HPI Gastrointestinal: abdominal pain. denies: nausea, vomiting, diarrhea, constipation Genitourinary: denies: urgency, dysuria Musculoskeletal: denies: back pain, joint swelling, arthralgia Skin: denies: rash, lesions Neurological: denies: headache, weakness, paresthesias Psychiatric: denies: anxiety, depression ED Past Medical Hx - Past Medical History Previous Medical History?: Yes Hx Hypertension: Yes Hx Headaches / Migraines: Yes Hx Psychiatric Treatment: Yes (bipolar,schizophrinic,) Hx Asthma: Yes Hx HIV: Yes (non-detectable) - Surgical History Past Surgical History?: Yes Additional Surgical History: ear tubes - Social History Smoking Status: Never Smoker Substance Use Type: None - Medications Home Medications: Home Medications Medication Instructions Recorded Confirmed Last Taken Type ALBUTEROL Inhaler (OR & NICU) 2 puff IH Q6H PRN #1 inhalation 05/10/18 09/20/18 Unknown Rx [ProAir HFA Inhaler] Bisacodyl [Dulcolax suppos] 10 mg [place] ONCE PRN 5 Days #5 10/10/18 Unknown Rx supp.rect Polyethylene Glycol 3350 [Miralax 17 gm PO BID PRN #14 packet 10/10/18 Unknown Rx 3350] Naproxen [Naprosyn TAB] 500 mg PO BID #20 tablet 11/11/18 Unknown Rx Ondansetron [Zofran ODT TAB] 4 mg PO Q8HR PRN #20 tab.rapdis 11/11/18 Unknown Rx Benzonatate [Tessalon Perles] 100 mg PO Q8HR PRN #20 capsule 11/20/18 Unknown Rx guaiFENesin [Mucinex] 600 mg PO DAILY #30 tab.er.12h 11/20/18 Unknown Rx Polyethylene Glycol 3350 [Miralax] 17 gm PO QDAY 10 Days #119 gram 02/02/19 Unknown Rx ED Physical Exam - General Limitations: No Limitations General appearance: alert, in no apparent distress - Head Head exam: Present: atraumatic, normocephalic - Eye Eye exam: Present: normal appearance - ENT ENT exam: Present: mucous membranes moist - Neck Neck exam: Present: normal inspection - Respiratory Respiratory exam: Present: normal lung sounds bilaterally. Absent: respiratory distress - Cardiovascular Cardiovascular Exam: Present: regular rate, normal rhythm. Absent: systolic murmur, diastolic murmur, rubs, gallop - GI/Abdominal GI/Abdominal exam: Present: soft, distended, diminished bowel sounds. Absent: tenderness, guarding, rebound - Extremities Exam Extremities exam: Present: normal inspection - Back Exam Back exam: Present: normal inspection - Neurological Exam Neurological exam: Present: alert, oriented X3 - Psychiatric Psychiatric exam: Present: normal affect, normal mood ED Course Vital Signs 02/02/19 16:33 Temperature 98.7 F Pulse Rate 84 Respiratory 16 Rate Blood Pressure 152/96 O2 Sat by Pulse 98 Oximetry ED Medical Decision Making - Lab Data Result diagrams: 02/02/19 17:09 02/02/19 17:09 Critical care attestation.: If time is entered above; I have spent that time in minutes in the direct care of this critically ill patient, excluding procedure time. ED Disposition Clinical Impression: Constipation Qualifiers: Constipation type: drug induced constipation Qualified Code(s): K59.03 - Drug induced constipation Disposition: DC-01 TO HOME OR SELFCARE Is pt being admited?: No Does the pt Need Aspirin: No Condition: Stable Instructions: Constipation (ED), High Fiber Diet (ED) Additional Instructions: Please use MiraLAX as prescribed. It appears that she may have constipation secondary to Suboxone. Follow up with her primary care provider if her symptoms persist or gets worse. Prescriptions: Polyethylene Glycol 3350 [Miralax] 17 gm PO QDAY 10 Days #119 gram Referrals: VANGIE SPENCER [Other] - 3-5 Days
== END 2019-02-02 22:30 | disposition home or self-care (01) ==
LOC: ED 15:55
DX: K59.00 Constipation, unspecified (principal); Z21 Asymptomatic human immunodeficiency virus [HIV] infection status; J45.909 Unspecified asthma, uncomplicated; G43.909 Migraine, unspecified, not intractable, without status migrainosus; I10 Essential (primary) hypertension; Z88.0 Allergy status to penicillin; Z91.018 Allergy to other foods; Z96.22 Myringotomy tube(s) status
CPT/HCPCS: 36415; 74022; 80048; 80076; 81001; 83690; 85025; 99284

== ENCOUNTER 2019-05-12 18:41 | Emergency (ER) | payer MEDICARE ==
[2019-05-12 19:29] VITALS: BP 139/93
--- NOTE | 2019-05-12 19:32 | Event Note ---
ED Screening Note Date of service: 05/12/19 Time: 19:29 ED Screening Note: presents with cough and upper abdominal pain denies n/v/d This initial assessment/diagnostic orders/clinical plan/treatment(s) is/are subject to change based on patients health status, clinical progression and re-assessment by fellow clinical providers in the ED. Further treatment and workup at subsequent clinical providers discretion. Patient/guardian urged not to elope from the ED as their condition may be serious if not clinically assessed and managed. Initial orders include:
[2019-05-12 20:03] LABS: Basophils # (Auto) 0.1 K/mm3 (0.0-0.1); Eosinophils # (Auto) 0.2 K/mm3 (0.0-0.4); Hematocrit 40.9 % (35.5-45.6); Hemoglobin 14.1 gm/dl (11.8-15.2); Lymphocytes # (Auto) 2.2 K/mm3 (1.2-5.4); Lymphocytes % (Auto) 38.1 % (13.4-35.0); Mean Corpuscular HGB Conc 35 % (32-34); Mean Corpuscular Volume 92 fl (84-94); Monocytes # (Auto) 0.5 K/mm3 (0.0-0.8); Monocytes % (Auto) 8.9 % (0.0-7.3); Platelet Count 195 K/mm3 (140-440); Red Blood Count 4.45 M/mm3 (3.65-5.03); Red Cell Distribution Width 13.2 % (13.2-15.2)
[2019-05-12 20:31] LABS: BUN/Creatinine Ratio 12; Blood Urea Nitrogen 14 mg/dL (9-20); Calcium 9.6 mg/dL (8.4-10.2); Hemolysis Index 22
[2019-05-12] MEDS ORDERED: IBUPROFEN PO ONE (22:14)
--- NOTE | 2019-05-12 22:26 | Emergency Department Report ---
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 HE REPORTS SOME ABD GRAMPING. DENIES N/V/D. ENDORSES A COUGH. BUT WITH NO FEVER OR CHILLS. ED Review of Systems ROS: Stated complaint: STOMACH PAIN Other details as noted in HPI Comment: All other systems reviewed and negative ED Past Medical Hx - Past Medical History Previous Medical History?: Yes Hx Hypertension: Yes Hx Headaches / Migraines: Yes Hx Psychiatric Treatment: Yes (bipolar,schizophrinic,) Hx Asthma: Yes Hx HIV: Yes (non-detectable) - Surgical History Past Surgical History?: Yes Additional Surgical History: ear tubes - Family History Family history: no significant - Social History Smoking Status: Current Every Day Smoker Substance Use Type: None - Medications Home Medications: Home Medications Medication Instructions Recorded Confirmed Last Taken Type ALBUTEROL Inhaler (OR & NICU) 2 puff IH Q6H PRN #1 inhalation 05/10/18 09/20/18 Unknown Rx [ProAir HFA Inhaler] Bisacodyl [Dulcolax suppos] 10 mg [place] ONCE PRN 5 Days #5 10/10/18 Unknown Rx supp.rect Polyethylene Glycol 3350 [Miralax 17 gm PO BID PRN #14 packet 10/10/18 Unknown Rx 3350] Naproxen [Naprosyn TAB] 500 mg PO BID #20 tablet 11/11/18 Unknown Rx Ondansetron [Zofran ODT TAB] 4 mg PO Q8HR PRN #20 tab.rapdis 11/11/18 Unknown Rx Benzonatate [Tessalon Perles] 100 mg PO Q8HR PRN #20 capsule 11/20/18 Unknown Rx guaiFENesin [Mucinex] 600 mg PO DAILY #30 tab.er.12h 11/20/18 Unknown Rx Polyethylene Glycol 3350 [Miralax] 17 gm PO QDAY 10 Days #119 gram 02/02/19 Unknown Rx Magnesium Citrate [Citrate of 296 ml PO ONCE #1 each 05/12/19 Unknown Rx Magnesia] Vomiting Diarrhea Exam - Exam General: Vital signs noted. No distress. Alert and acting appropriately. HEENT: No Pharyngeal Erythema Neck: No Adenopathy, No Rigidity Lungs: Yes Clear Lung Sounds, Yes Good Air Exchange, No Wheezes Heart exam: Regular: Yes, Murmur: No Abdomen: Tenderness: No, Peritoneal Signs: No, Distention: No, Hyperactive Bowel sounds: No Skin exam: Rash: No Neurologic: Alert and oriented, no deficits. Musculoskeletal: Unremarkable. ED Course Vital Signs 05/12/19 19:27 Temperature 98.4 F Pulse Rate 97 H Respiratory 18 Rate Blood Pressure 139/93 O2 Sat by Pulse 99 Oximetry ED Medical Decision Making - Lab Data Result diagrams: 05/12/19 19:40 05/12/19 19:40 - Radiology Data Radiology results: report reviewed, image reviewed - Medical Decision Making Labs 05/12/19 05/12/19 19:40 19:40 WBC 5.9 RBC 4.45 Hgb 14.1 Hct 40.9 MCV 92 MCH 32 MCHC 35 H RDW 13.2 Plt Count 195 Lymph % (Auto) 38.1 H [place] % (Auto) 8.9 H Eos % (Auto) 3.0 Baso % (Auto) 1.0 Lymph # 2.2 Hudson # 0.5 Eos # 0.2 Baso # 0.1 Seg Neutrophils % 49.0 Seg Neutrophils # 2.9 Sodium 143 Potassium 3.8 Chloride 105.0 Carbon Dioxide 26 Anion Gap 16 BUN 14 Creatinine 1.2 Estimated GFR > 60 BUN/Creatinine Ratio 12 Glucose 90 Calcium 9.6 Vital Signs 05/12/19 19:27 Temperature 98.4 F Pulse Rate 97 H Respiratory 18 Rate Blood Pressure 139/93 O2 Sat by Pulse 99 Oximetry XRAY NOTED PT HAS A/C CONSTIPATION AMBULATORY VSS ABD SNT NO FEVER NO CVA TENDERNESS DC HOME WITH DC PLAN OF CARE AND PCP FOLLOW UP Critical care attestation.: If time is entered above; I have spent that time in minutes in the direct care of this critically ill patient, excluding procedure time. ED Disposition Clinical Impression: Constipation, HIV positive Disposition: DC-01 TO HOME OR SELFCARE Is pt being admited?: No Does the pt Need Aspirin: No Condition: Stable Instructions: Constipation (ED) Additional Instructions: med as ordered today high fiber diet follow up with pcp referral below Prescriptions: Magnesium Citrate [Citrate of Magnesia] 296 ml PO ONCE #1 each Referrals: JAVON AVITIA MD [Staff Physician] - 3-5 Days Time of Disposition: 23:12
--- NOTE | 2019-05-12 23:09 | XRay Report ---
Chest and abdominal series. 05/12/2019. HISTORY: Chest/abdominal pain. Chest one view: Heart size is normal. Negative for edema, effusion or infiltrate. Two-view abdomen: Gas is scattered throughout the abdomen in a nonobstructive fashion. Negative for f ree air. Colonic stool is moderate. Signer Name: Lalo Ennis MD Signed: 05/12/2019 11:05 PM Workstation Name: [id number]
== END 2019-05-13 00:50 | disposition home or self-care (01) ==
LOC: ED 18:41
DX: K59.00 Constipation, unspecified (principal); I10 Essential (primary) hypertension; G43.909 Migraine, unspecified, not intractable, without status migrainosus; F31.9 Bipolar disorder, unspecified; F20.9 Schizophrenia, unspecified; J45.909 Unspecified asthma, uncomplicated; F17.200 Nicotine dependence, unspecified, uncomplicated; Z21 Asymptomatic human immunodeficiency virus [HIV] infection status; Z79.899 Other long term (current) drug therapy; Z88.0 Allergy status to penicillin; Z91.018 Allergy to other foods
CPT/HCPCS: 36415; 74022; 80048; 85025

== ENCOUNTER 2020-05-14 19:19 | Emergency (ER) | payer MEDICARE ==
[2020-05-14 20:14] VITALS: BP 121/71
--- NOTE | 2020-05-14 20:43 | XRay Report ---
CHEST 2 VIEWS INDICATION / CLINICAL INFORMATION: cough. COMPARISON: Chest x-ray 09/14/2000 FINDINGS: SUPPORT DEVICES: None. HEART / MEDIASTINUM: No significant abnormality. LUNGS / PLEURA: No significant pulmonary or pleural abnormality. No pneumothorax. ADDITIONAL FINDINGS: No significant additional findings. IMPRESSION: 1. No acute findings. Signer Name: Josh Castaneda MD Signed: 05/14/2020 8:38 PM Workstation Name: [id number]
--- NOTE | 2020-05-15 03:02 | Emergency Department Report ---
ED General Adult HPI - General Chief complaint: Upper Respiratory Infection Stated complaint: COUGHING Time Seen by Provider: 05/15/20 01:39 Source: patient Mode of arrival: Ambulatory Limitations: No Limitations - History of Present Illness Initial comments: 24-year-old F O[place]i male presents emergency department complaining of a few day history of cough congestion and coryza which she states is been significantly improved at this point. There is no hemoptysis no hematemesis no hematochezia. No mucus production is noted. Reports no wheezing. States that symptoms have been improving spontaneously. -: Gradual Location: chest Radiation: non-radiation Improves with: none Worsens with: none Associated Symptoms: cough Treatments Prior to Arrival: none - Related Data Previous Rx's Medication Instructions Recorded Last Taken Type Albuterol Mdi (or & Nicu Only) 2 puff IH Q6H PRN #1 inhalation 05/10/18 Unknown Rx [ProAir HFA Inhaler] bisacodyL [Dulcolax suppos] 10 mg [place] ONCE PRN 5 Days #5 10/10/18 Unknown Rx supp.rect polyethylene glycoL 3350 [Miralax 17 gm PO BID PRN #14 packet 10/10/18 Unknown Rx 3350] Naproxen [Naprosyn TAB] 500 mg PO BID #20 tablet 11/11/18 Unknown Rx Ondansetron [Zofran ODT TAB] 4 mg PO Q8HR PRN #20 tab.rapdis 11/11/18 Unknown Rx Benzonatate [Tessalon Perles] 100 mg PO Q8HR PRN #20 capsule 11/20/18 Unknown Rx guaiFENesin [Mucinex] 600 mg PO DAILY #30 tab.er.12h 11/20/18 Unknown Rx Polyethylene Glycol 3350 [Miralax] 17 gm PO QDAY 10 Days #119 gram 02/02/19 Un known Rx Magnesium Citrate [Citrate of 296 ml PO ONCE #1 each 05/12/19 Unknown Rx Magnesia] Albuterol Mdi (or & Nicu Only) 1 puff IH Q4-6H PRN #1 inha 09/15/19 Unknown Rx [ProAir HFA Inhaler] guaiFENesin/CODEINE [Robitussin AC] 5 ml PO Q6H PRN #120 ml 09/15/19 Unknown Rx Allergies Allergy/AdvReac Type Severity Reaction Status Date / Time lemon Allergy Unknown Verified 11/11/18 11:46 [place] Allergy Unknown Verified 11/11/18 11:46 Penicillins Allergy Rash Verified 11/11/18 11:46 pineapple Allergy Itching Verified 11/11/18 11:46 ED Review of Systems ROS: Stated complaint: COUGHING Other details as noted in HPI Comment: All other systems reviewed and negative ED Past Medical Hx - Past Medical History Previous Medical History?: Yes Hx Hypertension: Yes Hx Headaches / Migraines: Yes Hx Psychiatric Treatment: Yes (bipolar,schizophrinic,) Hx Asthma: Yes Hx HIV: Yes (non-detectable) - Surgical History Past Surgical History?: Yes Additional Surgical History: ear tubes - Social History Smoking Status: Never Smoker Substance Use Type: None - Medications Home Medications: Home Medications Medication Instructions Recorded Confirmed Last Taken Type Albuterol Mdi (or & Nicu Only) 2 puff IH Q6H PRN #1 inhalation 05/10/18 09/20/18 Unknown Rx [ProAir HFA Inhaler] bisacodyL [Dulcolax suppos] 10 mg [place] ONCE PRN 5 Days #5 10/10/18 Unknown Rx supp.rect polyethylene glycoL 3350 [Miralax 17 gm PO BID PRN #14 packet 10/10/18 Unknown Rx 3350] Naproxen [Naprosyn TAB] 500 mg PO BID #20 tablet 11/11/18 Unknown Rx Ondansetron [Zofran ODT TAB] 4 mg PO Q8HR PRN #20 tab.rapdis 11/11/18 Unknown Rx Benzonatate [Tessalon Perles] 100 mg PO Q8HR PRN #20 capsule 11/20/18 Unknown Rx guaiFENesin [Mucinex] 600 mg PO DAILY #30 tab.er.12h 11/20/18 Unknown Rx Polyethylene Glycol 3350 [Miralax] 17 gm PO QDAY 10 Days #119 gram 02/02/19 Unknown Rx Magnesium Citrate [Citrate of 296 ml PO ONCE #1 each 05/12/19 Unknown Rx Magnesia] Albuterol Mdi (or & Nicu Only) 1 puff IH Q4-6H PRN #1 inha 09/15/19 Unknown Rx [ProAir HFA Inhaler] guaiFENesin/CODEINE [Robitussin AC] 5 ml PO Q6H PRN #120 ml 09/15/19 Unknown Rx ED Physical Exam - General Limitations: No Limitations General appearance: alert, in no apparent distress - Head Head exam: Present: atraumatic, normocephalic - Eye Eye exam: Present: normal appearance, PERRL, EOMI Pupils: Present: normal accommodation - ENT ENT exam: Present: normal exam, mucous membranes moist - Neck Neck exam: Present: normal inspection - Respiratory Respiratory exam: Present: normal lung sounds bilaterally. Absent: respiratory distress, wheezes, rales, rhonchi, chest wall tenderness, accessory muscle use, decreased breath sounds - Cardiovascular Cardiovascular Exam: Present: regular rate, normal rhythm. Absent: systolic murmur, diastolic murmur, rubs, gallop - GI/Abdominal GI/Abdominal exam: Present: soft, normal bowel sounds - Rectal Rectal exam: Present: deferred - Extremities Exam Extremities exam: Present: normal inspection - Back Exam Back exam: Present: normal inspection - Neurological Exam Neurological exam: Present: alert, oriented X3 - Psychiatric Psychiatric exam: Present: normal affect, normal mood - Skin Skin exam: Present: warm, dry, intact, normal color. Absent: rash ED Course Vital Signs 05/14/20 20:09 Temperature 98.5 F Pulse Rate 77 Respiratory 16 Rate Blood Pressure 121/71 O2 Sat by Pulse 98 Oximetry ED Medical Decision Making - Radiology Data Radiology results: report reviewed Referring Physician:JOSUÉ MCCOYPatient Name:BHARAT CALIXRPatient ID:[id number] of :[id number]:MaleAccession:[id number] Date:[id number] Status:Finalized Findings [address] [address] XRay Report Signed Patient: BHARAT OLSEN MR#: [id number] : 1995 Acct:[id number] Age/Sex: 24 / M ADM Date: 05/14/20 Loc: ED Attending Dr: Ordering Physician: JOSUÉ MCCOY MD Date of Service: 05/14/20 Procedure(s): XR chest routine 2V Accession Number(s): [id number] cc: JOSUÉ MCCOY MD Fluoro Time In Minutes: CHEST 2 VIEWS INDICATION / CLINICAL INFORMATION: cough. COMPARISON: Chest x-ray 09/14/2000 FINDINGS: SUPPORT DEVICES: None. HEART / MEDIASTINUM: No significant abnormality. LUNGS / PLEURA: No significant pulmonary or pleural abnormality. No pneumothorax. ADDITIONAL FINDINGS: No significant additional findings. IMPRESSION: 1. No acute findings. Signer Name: Josh Castaneda MD Signed: 05/14/2020 8:38 PM Workstation Name: [id number] Transcribed By: TL Dictated By: Josh Castaneda MD Electronically Authenticated By: Josh Castaneda MD Signed Date/Time: 05/14/202037 DD/ 37 TD/TT: - Medical Decision Making This patient presents with acute cough, most consistent with URI. Differential diagnosis includes pneumonia, asthma, URI, hyperreactive airway disease. Presentation not consistent with acute bacterial pneumonia, influenza, asthma, transient airway hyperresponsiveness. Presentation not consistent with chronic causes of cough (including GERD, asthma, postnasal discharge, medication side effect, CHF, lung cancer or mass). Mr. Scruggs resting comfortably no acute distress speaking in full sentences ambulatory with no desaturation. Plan: Normal CXR (*no pneumonia or effusion noted), supportive care, reassess Critical care attestation.: If time is entered above; I have spent that time in minutes in the direct care of this critically ill patient, excluding procedure time. ED Disposition Clinical Impression: Cough Disposition: DC-01 TO HOME OR SELFCARE Is pt being admited?: No Does the pt Need Aspirin: No Condition: Stable Instructions: Cold Symptoms (ED), Acute Cough (ED) Referrals: PRIMARY CAREMD [Primary Care Provider] - 3-5 Days [facility] [Provider Group] - 3-5 Days
== END 2020-05-15 03:55 | disposition home or self-care (01) ==
LOC: ED 19:19
DX: R05 Cough (principal); I10 Essential (primary) hypertension; G43.909 Migraine, unspecified, not intractable, without status migrainosus; F25.0 Schizoaffective disorder, bipolar type; J45.909 Unspecified asthma, uncomplicated; Z21 Asymptomatic human immunodeficiency virus [HIV] infection status; Z79.899 Other long term (current) drug therapy; Z88.0 Allergy status to penicillin; Z91.018 Allergy to other foods
CPT/HCPCS: 71046; 99283

== ENCOUNTER 2020-05-24 10:05 | Emergency (ER) | payer MEDICARE ==
[2020-05-24 10:13] VITALS: BP 145/85
== END 2020-05-24 11:19 | disposition left against medical advice (07) ==
LOC: ED 10:05
DX: M79.645 Pain in left finger(s) (principal); Z53.21 Procedure and treatment not carried out due to patient leaving prior to being seen by health care provider

== ENCOUNTER 2020-06-30 22:19 | Emergency (ER) | payer MEDICARE ==
[2020-07-01 00:18] VITALS: BP 134/88
[2020-07-01] MEDS ORDERED: HYDROcodone/ACETAMINOPHEN 5-325 MG TAB PO ONE (04:12)
[2020-07-01] MEDS ORDERED: cephALEXin 500 MG CAP PO ONE (04:12)
[2020-07-01] MEDS ORDERED: LIDOCAINE-MPF (1%) 10 MG/1 ML VIAL 5 ML INFILTRATI ONE (04:12)
--- NOTE | 2020-07-01 05:41 | Emergency Department Report ---
ED Upper Extremity Inj HPI - General Chief Complaint: Extremity Injury, Upper Stated Complaint: LT PINKY FINGER SWOLLEN Time Seen by Provider: 07/01/20 04:10 Source: patient Mode of arrival: Ambulatory Limitations: No Limitations - History of Present Illness Initial Comments: Patient is a 24-year-old male who presents for right fifth digit paronychia pat ient states he slammed his finger in a car door 2 days ago. Are now now with pain and throbbing in his fingertip. There is no noted nail injury. There is no deformity no open wound, patient states pain is 5/10 throbbing exacerbated by movement and palpation. Pain is relieved by nothing tried. MD Complaint: Injury to:: right - Related Data Previous Rx's Medication Instructions Recorded Last Taken Type Albuterol Mdi (or & Nicu Only) 2 puff IH Q6H PRN #1 inhalation 05/10/18 Unknown Rx [ProAir HFA Inhaler] bisacodyL [Dulcolax suppos] 10 mg [place] ONCE PRN 5 Days #5 10/10/18 Unknown Rx supp.rect polyethylene glycoL 3350 [Miralax 17 gm PO BID PRN #14 packet 10/10/18 Unknown Rx 3350] Naproxen [Naprosyn TAB] 500 mg PO BID #20 tablet 11/11/18 Unknown Rx Ondansetron [Zofran ODT TAB] 4 mg PO Q8HR PRN #20 tab.rapdis 11/11/18 Unknown Rx Benzonatate [Tessalon Perles] 100 mg PO Q8HR PRN #20 capsule 11/20/18 Unknown Rx guaiFENesin [Mucinex] 600 mg PO DAILY #30 tab.er.12h 11/20/18 Unknown Rx Polyethylene Glycol 3350 [Miralax] 17 gm PO QDAY 10 Days #119 gram 02/02/19 Unknown Rx Magnesium Citrate [Citrate of 296 ml PO ONCE #1 each 05/12/19 Unknown Rx Magnesia] Albuterol Mdi (or & Nicu Only) 1 puff IH Q4-6H PRN #1 inha 09/15/19 Unknown Rx [ProAir HFA Inhaler] guaiFENesin/CODEINE [Robitussin AC] 5 ml PO Q6H PRN #120 ml 09/15/19 Unknown Rx cephALEXin [Keflex] 500 mg PO Q8HR 7 Days #21 cap 10/16/20 Unknown Rx traMADoL [Ultram] 50 mg PO Q6HR PRN #12 tablet 07/01/20 Unknown Rx Allergies Allergy/AdvReac Type Severity Reaction Status Date / Time lemon Allergy Unknown Verified 11/11/18 11:46 [place] Allergy Unknown Verified 11/11/18 11:46 Penicillins Allergy Rash Verified 11/11/18 11:46 pineapple Allergy Itching Verified 11/11/18 11:46 ED Review of Systems ROS: Stated complaint: LT PINKY FINGER SWOLLEN Other details as noted in HPI Constitutional: denies: chills, fever Eyes: denies: eye pain, eye discharge, vision change ENT: denies: ear pain, throat pain Respiratory: denies: cough, shortness of breath, wheezing Cardiovascular: denies: chest pain, palpitations Endocrine: no symptoms reported Gastrointestinal: denies: abdominal pain, nausea, diarrhea Genitourinary: denies: urgency, dysuria Musculoskeletal: other (pain swelling right 5th digit dorsal finger tip ) Skin: other (as above ). denies: rash, lesions Neurological: denies: headache, weakness, paresthesias Psychiatric: denies: anxiety, depression Hematological/Lymphatic: denies: easy bleeding, easy bruising ED Past Medical Hx - Past Medical History Previous Medical History?: Yes Hx Hypertension: Yes Hx Headaches / Migraines: Yes Hx Psychiatric Treatment: Yes (bipolar,schizophrinic,) Hx Asthma: Yes Hx HIV: Yes (non-detectable) - Surgical History Past Surgical History?: Yes Additional Surgical History: ear tubes - Social History Smoking Status: Never Smoker Substance Use Type: Marijuana - Medications Home Medications: Home Medications Medication Instructions Recorded Confirmed Last Taken Type Albuterol Mdi (or & Nicu Only) 2 puff IH Q6H PRN #1 inhalation 05/10/18 09/20/18 Unknown Rx [ProAir HFA Inhaler] bisacodyL [Dulcolax suppos] 10 mg [place] ONCE PRN 5 Days #5 10/10/18 Unknown Rx supp.rect polyethylene glycoL 3350 [Miralax 17 gm PO BID PRN #14 packet 10/10/18 Unknown Rx 3350] Naproxen [Naprosyn TAB] 500 mg PO BID #20 tablet 11/11/18 Unknown Rx Ondansetron [Zofran ODT TAB] 4 mg PO Q8HR PRN #20 tab.rapdis 11/11/18 Unknown Rx Benzonatate [Tessalon Perles] 100 mg PO Q8HR PRN #20 capsule 11/20/18 Unknown Rx guaiFENesin [Mucinex] 600 mg PO DAILY #30 tab.er.12h 11/20/18 Unknown Rx Polyethylene Glycol 3350 [Miralax] 17 gm PO QDAY 10 Days #119 gram 02/02/19 Unknown Rx Magnesium Citrate [Citrate of 296 ml PO ONCE #1 each 05/12/19 Unknown Rx Magnesia] Albuterol Mdi (or & Nicu Only) 1 puff IH Q4-6H PRN #1 inha 09/15/19 Unknown Rx [ProAir HFA Inhaler] guaiFENesin/CODEINE [Robitussin AC] 5 ml PO Q6H PRN #120 ml 09/15/19 Unknown Rx cephALEXin [Keflex] 500 mg PO Q8HR 7 Days #21 cap 07/01/20 Unknown Rx traMADoL [Ultram] 50 mg PO Q6HR PRN #12 tablet 07/01/20 Unknown Rx ED Physical Exam - General Limitations: No Limitations General appearance: alert, in no apparent distress - Head Head exam: Present: atraumatic, normocephalic - Eye Eye exam: Present: normal appearance - ENT ENT exam: Present: mucous membranes moist - Neck Neck exam: Present: normal inspection - Respiratory Respiratory exam: Present: normal lung sounds bilaterally. Absent: respiratory distress - Cardiovascular Cardiovascular Exam: Present: regular rate, normal rhythm, normal heart sounds. Absent: systolic murmur, diastolic murmur, rubs, gallop - GI/Abdominal GI/Abdominal exam: Present: soft, normal bowel sounds - Rectal Rectal exam: Present: deferred - Extremities Exam Extremities exam: Present: normal inspection, full ROM, tenderness (right 5th digit pinky finger), normal capillary refill - Expanded Upper Extremity Exam Right Hand Wrist exam: Present: full ROM, tenderness, swelling, erythema. Absent: nail avulsion, subungual hematoma Neuro motor exam: Present: wrist extension intact, thumb adduction intact, fingers 2-5 abduction intact - Back Exam Back exam: Present: normal inspection, full ROM - Neurological Exam Neurological exam: Present: alert, oriented X3, CN II-XII intact, normal gait, reflexes normal. Absent: motor sensory deficit - Expanded Neurological Exam Expanded Patient oriented to: Present: person, place, time Motor strength exam: RUE: 5, LUE: 5 Best Eye Response (Blank): (4) open spontaneously Best Motor Response (Blank): (6) obeys commands Best Verbal Response (Blank): (5) oriented Blank Total: 15 - Psychiatric Psychiatric exam: Present: normal affect, normal mood - Skin Skin exam: Present: warm, dry, intact, normal color. Absent: rash ED Course Vital Signs 07/01/20 07/01/20 00:17 00:19 Temperature 98 F 98.0 F Pulse Rate 58 L 59 L Respiratory 12 12 Rate Blood Pressure 134/88 Blood Pressure 134/88 [Right] O2 Sat by Pulse 99 99 Oximetry - I & D Right Upper Distal Dorsal Finger Type of Procedure: Simple (right distal 5th digit finger tip paronychia) Site: right pinky finger distal Blade Size: 11 I & D Procedure: betadine prep, sterile drapes applied, sterile dressing applied Progress: Right dorsal pinky paronychia site cleaned with Betadine solution, anesthesia with 1% lidocaine plain via digital block. Anesthesia achieved. Incision with 11 blade scalpel at nailbed. Moderate purulent drainage. Nailbed probed with cotton Q-tip swab. Nailbed irrigated with 10 cc sterile saline. All bleeding is controlled. Sterile dressing is applied. Patient given wound care instructions verbalized understanding of same. Patient tolerated procedure with minimal distress. Range of motion is intact CMS remains intact. There is no nailbed injury, no deformity ,no weakness, distal pulses are intact ,VERIFICATION SPECIALIST is less than 3 seconds. ED Medical Decision Making - Medical Decision Making Right pinky finger paronychia ,see procedure note ,same for I&D ,all bleeding is controlled, sterile dressings applied, patient tolerated procedure with minimal distress, patient given wound care instructions, pt DC'd to home with prescriptions for antibiotics and prn po pain control, Patient will follow-up with PCP in 2 to 3 days for wound check. Patient will return to ED should symptoms worsen ,patient verbalizes agreement and understanding with discharge plan. Patient DC'd home in stable condition at this time. Critical care attestation.: If time is entered above; I have spent that time in minutes in the direct care of this critically ill patient, excluding procedure time. ED Disposition Clinical Impression: Paronychia of finger of right hand Disposition: DC-01 TO HOME OR SELFCARE Is pt being admited?: No Does the pt Need Aspirin: No Condition: Stable Instructions: Paronychia (ED) Prescriptions: cephALEXin [Keflex] 500 mg PO Q8HR 7 Days #21 cap traMADoL [Ultram] 50 mg PO Q6HR PRN #12 tablet PRN Reason: Pain Referrals: SHERON SWAN MD [Staff Physician] - 3-5 Days Forms: Work/School Release Form(ED) Time of Disposition: 05:52
== END 2020-07-01 06:05 | disposition home or self-care (01) ==
LOC: ED 22:19
DX: L03.011 Cellulitis of right finger (principal); I10 Essential (primary) hypertension; F31.9 Bipolar disorder, unspecified; G43.909 Migraine, unspecified, not intractable, without status migrainosus; J45.909 Unspecified asthma, uncomplicated; F12.10 Cannabis abuse, uncomplicated; Z98.890 Other specified postprocedural states; Z79.899 Other long term (current) drug therapy; Z21 Asymptomatic human immunodeficiency virus [HIV] infection status; Z88.0 Allergy status to penicillin; Z91.018 Allergy to other foods
CPT/HCPCS: 99282

== ENCOUNTER 2020-08-16 16:58 | Emergency (ER) | payer MEDICARE ==
[2020-08-16 17:04] VITALS: BP 151/99
--- NOTE | 2020-08-16 19:28 | Emergency Department Report ---
- General Chief complaint: Headache Stated complaint: KNOT LOWER ABD Time Seen by Provider: 08/16/20 19:23 Source: patient Mode of arrival: Ambulatory Limitations: No Limitations - History of Present Illness Initial comments: Patient is a 25-year-old male who presents emergency room with complaints of a "cyst to the lower abdomen" that began a week ago. He states he has noticed a small amount of drainage. He denies any fever, vomiting, diarrhea, chills any other symptoms. He has a past medical history of bronchitis, HIV. He has allergy to penicillin. - Related Data Previous Rx's Medication Instructions Recorded Last Taken Type Albuterol Mdi (or & Nicu Only) 2 puff IH Q6H PRN #1 inhalation 05/10/18 Unknown Rx [ProAir HFA Inhaler] bisacodyL [Dulcolax suppos] 10 mg HI ONCE PRN 5 Days #5 10/10/18 Unknown Rx supp.rect polyethylene glycoL 3350 [Miralax 17 gm PO BID PRN #14 packet 10/10/18 Unknown Rx 3350] Naproxen [Naprosyn TAB] 500 mg PO BID #20 tablet 11/11/18 Unknown Rx Ondansetron [Zofran ODT TAB] 4 mg PO Q8HR PRN #20 tab.rapdis 11/11/18 Unknown Rx Benzonatate [Tessalon Perles] 100 mg PO Q8HR PRN #20 capsule 11/20/18 Unknown Rx guaiFENesin [Mucinex] 600 mg PO DAILY #30 tab.er.12h 11/20/18 Unknown Rx Polyethylene Glycol 3350 [Miralax] 17 gm PO QDAY 10 Days #119 gram 02/02/19 Unknown Rx Magnesium Citrate [Citrate of 296 ml PO ONCE #1 each 05/12/19 Unknown Rx Magnesia] Albuterol Mdi (or & Nicu Only) 1 puff IH Q4-6H PRN #1 inha 09/15/19 Unknown Rx [ProAir HFA Inhaler] guaiFENesin/CODEINE [Robitussin AC] 5 ml PO Q6H PRN #120 ml 09/15/19 Unknown Rx cephALEXin [Keflex] 500 mg PO Q8HR 7 Days #21 cap 07/01/20 Unknown Rx traMADoL [Ultram] 50 mg PO Q6HR PRN #12 tablet 07/01/20 Unknown Rx Acetaminophen [Tylenol] 650 mg PO Q8HR PRN #14 capsule 08/16/20 Unknown Rx Sulfamethoxazole/Trimethoprim 1 each PO BID 7 Days #14 tablet 08/16/20 Unknown Rx [Bactrim DS TAB] Allergies Allergy/AdvReac Type Severity Reaction Status Date / Time lemon Allergy Unknown Verified 11/11/18 11:46 [place] Allergy Unknown Verified 11/11/18 11:46 Penicillins Allergy Rash Verified 11/11/18 11:46 pineapple Allergy Itching Verified 11/11/18 11:46 Abscess Boil HPI - HPI Chief Complaint: Headache Stated Complaint: KNOT LOWER ABD Time Seen by Provider: 08/16/20 19:23 Home Medications: Previous Rx's Medication Instructions Recorded Last Taken Type Albuterol Mdi (or & Nicu Only) 2 puff IH Q6H PRN #1 inhalation 05/10/18 Unknown Rx [ProAir HFA Inhaler] bisacodyL [Dulcolax suppos] 10 mg HI ONCE PRN 5 Days #5 10/10/18 Unknown Rx supp.rect polyethylene glycoL 3350 [Miralax 17 gm PO BID PRN #14 packet 10/10/18 Unknown Rx 3350] Naproxen [Naprosyn TAB] 500 mg PO BID #20 tablet 11/11/18 Unknown Rx Ondansetron [Zofran ODT TAB] 4 mg PO Q8HR PRN #20 tab.rapdis 11/11/18 Unknown Rx Benzonatate [Tessalon Perles] 100 mg PO Q8HR PRN #20 capsule 11/20/18 Unknown Rx guaiFENesin [Mucinex] 600 mg PO DAILY #30 tab.er.12h 11/20/18 Unknown Rx Polyethylene Glycol 3350 [Miralax] 17 gm PO QDAY 10 Days #119 gram 02/02/19 Unknown Rx Magnesium Citrate [Citrate of 296 ml PO ONCE #1 each 05/12/19 Unknown Rx Magnesia] Albuterol Mdi (or & Nicu Only) 1 puff IH Q4-6H PRN #1 inha 09/15/19 Unknown Rx [ProAir HFA Inhaler] guaiFENesin/CODEINE [Robitussin AC] 5 ml PO Q6H PRN #120 ml 09/15/19 Unknown Rx cephALEXin [Keflex] 500 mg PO Q8HR 7 Days #21 cap 07/01/20 Unknown Rx traMADoL [Ultram] 50 mg PO Q6HR PRN #12 tablet 07/01/20 Unknown Rx Acetaminophen [Tylenol] 650 mg PO Q8HR PRN #14 capsule 08/16/20 Unknown Rx Sulfamethoxazole/Trimethoprim 1 each PO BID 7 Days #14 tablet 08/16/20 Unknown Rx [Bactrim DS TAB] Allergies/Adverse Reactions: Allergies Allergy/AdvReac Type Severity Reaction Status Date / Time lemon Allergy Unknown Verified 11/11/18 11:46 [place] Allergy Unknown Verified 11/11/18 11:46 Penicillins Allergy Rash Verified 11/11/18 11:46 pineapple Allergy Itching Verified 11/11/18 11:46 ED Review of Systems ROS: Stated complaint: KNOT LOWER ABD Other details as noted in HPI Comment: All other systems reviewed and negative ED Past Medical Hx - Past Medical History Previous Medical History?: Yes Hx Hypertension: Yes Hx Headaches / Migraines: Yes Hx Psychiatric Treatment: Yes (bipolar,schizophrinic,) Hx Asthma: Yes Hx HIV: Yes (non-detectable) - Surgical History Past Surgical History?: Yes Additional Surgical History: ear tubes - Social History Smoking Status: Never Smoker Substance Use Type: None - Medications Home Medications: Home Medications Medication Instructions Recorded Confirmed Last Taken Type Albuterol Mdi (or & Nicu Only) 2 puff IH Q6H PRN #1 inhalation 05/10/18 09/20/18 Unknown Rx [ProAir HFA Inhaler] bisacodyL [Dulcolax suppos] 10 mg HI ONCE PRN 5 Days #5 10/10/18 Unknown Rx supp.rect polyethylene glycoL 3350 [Miralax 17 gm PO BID PRN #14 packet 10/10/18 Unknown Rx 3350] Naproxen [Naprosyn TAB] 500 mg PO BID #20 tablet 11/11/18 Unknown Rx Ondansetron [Zofran ODT TAB] 4 mg PO Q8HR PRN #20 tab.rapdis 11/11/18 Unknown Rx Benzonatate [Tessalon Perles] 100 mg PO Q8HR PRN #20 capsule 11/20/18 Unknown Rx guaiFENesin [Mucinex] 600 mg PO DAILY #30 tab.er.12h 11/20/18 Unknown Rx Polyethylene Glycol 3350 [Miralax] 17 gm PO QDAY 10 Days #119 gram 02/02/19 Unknown Rx Magnesium Citrate [Citrate of 296 ml PO ONCE #1 each 05/12/19 Unknown Rx Magnesia] Albuterol Mdi (or & Nicu Only) 1 puff IH Q4-6H PRN #1 inha 09/15/19 Unknown Rx [ProAir HFA Inhaler] guaiFENesin/CODEINE [Robitussin AC] 5 ml PO Q6H PRN #120 ml 09/15/19 Unknown Rx cephALEXin [Keflex] 500 mg PO Q8HR 7 Days #21 cap 07/01/20 Unknown Rx traMADoL [Ultram] 50 mg PO Q6HR PRN #12 tablet 07/01/20 Unknown Rx Acetaminophen [Tylenol] 650 mg PO Q8HR PRN #14 capsule 08/16/20 Unknown Rx Sulfamethoxazole/Trimethoprim 1 each PO BID 7 Days #14 tablet 08/16/20 Unknown Rx [Bactrim DS TAB] ED Physical Exam - General Limitations: No Limitations General appearance: alert, in no apparent distress - Head Head exam: Present: atraumatic, normocephalic - Eye Eye exam: Present: normal appearance - ENT ENT exam: Present: mucous membranes moist - Respiratory Respiratory exam: Absent: respiratory distress, accessory muscle use - Neurological Exam Neurological exam: Present: alert, oriented X3 - Psychiatric Psychiatric exam: Present: normal affect, normal mood - Skin Skin exam: Present: warm, dry, other (marine diesel technician: altagracia zhang, there is a 0.5 cm opening present just superior to the mons pubis, appears to initially have been an infected hair follicle, there is a 2 cm area of surrounding induration, able to manually express purulent drainage, no necrosis, no skin denuding) ED Course Vital Signs 08/16/20 17:03 Temperature 98.0 F Pulse Rate 96 H Respiratory 14 Rate Blood Pressure 151/99 O2 Sat by Pulse 95 Oximetry ED Medical Decision Making - Medical Decision Making Patient is a 25-year-old male who presents emergency room with complaints of a "cyst to the lower abdomen" that began a week ago. He states he has noticed a small amount of drainage. He denies any fever, vomiting, diarrhea, chills any other symptoms. He has a past medical history of bronchitis, HIV. He has allergy to penicillin. VSS. on exam:marine diesel technician: altagracia zhang, there is a 0.5 cm opening present just superior to the mons pubis, appears to initially have been an infected hair follicle, there is a 2 cm area of surrounding induration, able to manually express purulent drainage, no necrosis, no skin denuding. Examination appears consistent with cellulitis, there is already an opening allowing drainage, does not need I&D at this time. Patient given prescription for Bactrim and Tylenol. Advised patient Please take medication as prescribed. Please keep area clean, dry, covered. May use warm compresses 3 times a day. Follow-up with your primary care doctor and have the area reexamined in the next 3 days. Return to emergency room immediately for any new or worsening symptoms including but not limited to worsening pain, worsening swelling, worsening drainage, fever, vomiting, chills, etc. Critical care attestation.: If time is entered above; I have spent that time in minutes in the direct care of this critically ill patient, excluding procedure time. ED Disposition Clinical Impression: Cellulitis Qualifiers: Site of cellulitis: trunk Site of cellulitis of trunk: groin Qualified Code(s): L03.314 - Cellulitis of groin Disposition: DC-01 TO HOME OR SELFCARE Is pt being admited?: No Does the pt Need Aspirin: No Condition: Stable Instructions: Cellulitis, Adult Additional Instructions: Please take medication as prescribed. Please keep area clean, dry, covered. May use warm compresses 3 times a day. Follow-up with your primary care doctor and have the area reexamined in the next 3 days. Return to emergency room immediately for any new or worsening symptoms including but not limited to worsening pain, worsening swelling, worsening drainage, fever, vomiting, chills, etc. Prescriptions: Sulfamethoxazole/Trimethoprim [Bactrim DS TAB] 1 each PO BID 7 Days #14 tablet Acetaminophen [Tylenol] 650 mg PO Q8HR PRN #14 capsule PRN Reason: pain Referrals: SHERON SWAN MD [Staff Physician] - 2-3 Days [facility] [Provider Group] - 2-3 Days Time of Disposition: 19:27 Print Language: GREEK
== END 2020-08-16 20:00 | disposition home or self-care (01) ==
LOC: ED 16:58
DX: L03.314 Cellulitis of groin (principal); I10 Essential (primary) hypertension; G43.909 Migraine, unspecified, not intractable, without status migrainosus; F25.0 Schizoaffective disorder, bipolar type; J45.909 Unspecified asthma, uncomplicated; Z21 Asymptomatic human immunodeficiency virus [HIV] infection status; Z79.899 Other long term (current) drug therapy; Z88.0 Allergy status to penicillin; Z88.8 Allergy status to other drugs, medicaments and biological substances
CPT/HCPCS: 99281

== ENCOUNTER 2021-12-21 17:57 | Emergency (ER) | payer MEDICARE ==
[2021-12-21 20:20] LABS: RBC,Urine < 1.0 /HPF (0.0-6.0)
[2021-12-21 20:47] LABS: Alanine Aminotransferase 27 units/L (7-56); Albumin 4.6 g/dL (3.9-5); BUN/Creatinine Ratio 12; Blood Urea Nitrogen 12 mg/dL (9-20); Calcium 9.2 mg/dL (8.4-10.2); Hemolysis Index 19
[2021-12-21 20:52] LABS: Basophils % (Auto) 0.8 % (0.0-1.8); Eosinophils # (Auto) 0.1 K/mm3 (0.0-0.4); Eosinophils % (Auto) 2.2 % (0.0-4.3); Hematocrit 41.8 % (35.5-45.6); Hemoglobin 13.6 gm/dl (11.8-15.2); Lymphocytes # (Auto) 2.4 K/mm3 (1.2-5.4); Lymphocytes % (Auto) 40.1 % (13.4-35.0); Mean Corpuscular HGB Conc 33 % (32-34); Mean Corpuscular Volume 94 fl (84-94); Monocytes # (Auto) 0.4 K/mm3 (0.0-0.8); Platelet Count 181 K/mm3 (140-440); Red Blood Count 4.44 M/mm3 (3.65-5.03)
[2021-12-21 20:52] LABS: Bilirubin,Urine Negative (Negative); Blood,Urine Negative (Negative); Color,Urine Straw (Yellow); Protein,Urine <15 mg/dL mg/dL (Negative)
[2021-12-21 20:53] LABS: Urobilinogen,Urine < 2.0 mg/dL (<2.0)
[2021-12-21] MEDS ORDERED: ONDANSETRON 4 MG ODT TAB PO ONE (21:14)
--- NOTE | 2021-12-21 21:33 | Emergency Department Report ---
ED Abdominal Pain HPI - General Chief Complaint: Abdominal Pain Stated Complaint: HEP B Time Seen by Provider: 12/21/21 21:15 Source: patient Mode of arrival: Ambulatory Limitations: No Limitations - History of Present Illness Initial Comments: Is a 26-year-old male who presents for abdominal pain rated at 2/10 however patient is tolerating p.o. intake there is no nausea vomiting at this time. Patient states he saw primary care doctor at [place] on yesterday diagnosed with hepatitis B and has follow-up. States he comes tonight to confirm diagnosis. Patient denies fevers there is no chills patient alert oriented patient appears nontoxic at this time MD Complaint: abdominal pain - Related Data Previous Rx's Medication Instructions Recorded Last Taken Type Albuterol Mdi (or & Nicu Only) 2 puff IH Q6H PRN #1 inhalation 05/10/18 Unknown Rx [ProAir HFA Inhaler] bisacodyL [Dulcolax suppos] 10 mg [place] ONCE PRN 5 Days #5 10/10/18 Unknown Rx supp.rect polyethylene glycoL 3350 [Miralax 17 gm PO BID PRN #14 packet 10/10/18 Unknown Rx 3350] Naproxen [Naprosyn TAB] 500 mg PO BID #20 tablet 11/11/18 Unknown Rx Ondansetron [Zofran ODT TAB] 4 mg PO Q8HR PRN #20 tab.rapdis 11/11/18 Unknown Rx Benzonatate [Tessalon Perles] 100 mg PO Q8HR PRN #20 capsule 11/20/18 Unknown Rx guaiFENesin [Mucinex] 600 mg PO DAILY #30 tab.er.12h 11/20/18 Unknown Rx Polyethylene Glycol 3350 [Miralax] 17 gm PO QDAY 10 Days #119 gram 02/02/19 Unknown Rx Magnesium Citrate [Citrate of 296 ml PO ONCE #1 each 05/12/19 Unknown Rx Magnesia] Albuterol Mdi (or & Nicu Only) 1 puff IH Q4-6H PRN #1 inha 09/15/19 Unknown Rx [ProAir HFA Inhaler] guaiFENesin/CODEINE [Robitussin AC] 5 ml PO Q6H PRN #120 ml 09/15/19 Unknown Rx cephALEXin [Keflex] 500 mg PO Q8HR 7 Days #21 cap 07/01/20 Unknown Rx traMADoL [Ultram] 50 mg PO Q6HR PRN #12 tablet 07/01/20 Unknown Rx Acetaminophen [Tylenol] 650 mg PO Q8HR PRN #14 capsule 08/16/20 Unknown Rx Sulfamethoxazole/Trimethoprim 1 each PO BID 7 Days #14 tablet 08/16/20 Unknown Rx [Bactrim DS TAB] Allergies Allergy/AdvReac Type Severity Reaction Status Date / Time lemon Allergy Unknown Verified 11/11/18 11:46 [place] Allergy Unknown Verified 11/11/18 11:46 Penicillins Allergy Rash Verified 11/11/18 11:46 pineapple Allergy Itching Verified 11/11/18 11:46 ED Review of Systems ROS: Stated complaint: HEP B Other details as noted in HPI Constitutional: denies: chills, fever Eyes: denies: eye pain, eye discharge, vision change ENT: denies: ear pain, throat pain Respiratory: denies: cough, shortness of breath, wheezing Cardiovascular: denies: chest pain, palpitations Endocrine: no symptoms reported Gastrointestinal: abdominal pain, nausea. denies: vomiting, diarrhea, constipation, melena Genitourinary: denies: urgency, dysuria Musculoskeletal: denies: back pain, joint swelling, arthralgia Skin: denies: rash, lesions Neurological: denies: headache, weakness, paresthesias, vertigo Psychiatric: denies: anxiety, depression Hematological/Lymphatic: denies: easy bleeding, easy bruising ED Past Medical Hx - Past Medical History Hx Hypertension: Yes Hx Headaches / Migraines: Yes Hx Psychiatric Treatment: Yes (bipolar,schizophrinic,) Hx Asthma: Yes Hx HIV: Yes (non-detectable) - Surgical History Additional Surgical History: ear tubes - Social History Smoking Status: Never Smoker Substance Use Type: None - Medications Home Medications: Home Medications Medication Instructions Recorded Confirmed Last Taken Type Albuterol Mdi (or & Nicu Only) 2 puff IH Q6H PRN #1 inhalation 05/10/18 09/20/18 Unknown Rx [ProAir HFA Inhaler] bisacodyL [Dulcolax suppos] 10 mg [place] ONCE PRN 5 Days #5 10/10/18 Unknown Rx supp.rect polyethylene glycoL 3350 [Miralax 17 gm PO BID PRN #14 packet 10/10/18 Unknown Rx 3350] Naproxen [Naprosyn TAB] 500 mg PO BID #20 tablet 11/11/18 Unknown Rx Ondansetron [Zofran ODT TAB] 4 mg PO Q8HR PRN #20 tab.rapdis 11/11/18 Unknown Rx Benzonatate [Tessalon Perles] 100 mg PO Q8HR PRN #20 capsule 11/20/18 Unknown Rx guaiFENesin [Mucinex] 600 mg PO DAILY #30 tab.er.12h 11/20/18 Unknown Rx Polyethylene Glycol 3350 [Miralax] 17 gm PO QDAY 10 Days #119 gram 02/02/19 Unknown Rx Magnesium Citrate [Citrate of 296 ml PO ONCE #1 each 05/12/19 Unknown Rx Magnesia] Albuterol Mdi (or & Nicu Only) 1 puff IH Q4-6H PRN #1 inha 09/15/19 Unknown Rx [ProAir HFA Inhaler] guaiFENesin/CODEINE [Robitussin AC] 5 ml PO Q6H PRN #120 ml 09/15/19 Unknown Rx cephALEXin [Keflex] 500 mg PO Q8HR 7 Days #21 cap 07/01/20 Unknown Rx traMADoL [Ultram] 50 mg PO Q6HR PRN #12 tablet 07/01/20 Unknown Rx Acetaminophen [Tylenol] 650 mg PO Q8HR PRN #14 capsule 08/16/20 Unknown Rx Sulfamethoxazole/Trimethoprim 1 each PO BID 7 Days #14 tablet 08/16/20 Unknown Rx [Bactrim DS TAB] ED Physical Exam - General Limitations: No Limitations General appearance: alert, in no apparent distress - Head Head exam: Present: normocephalic, normal inspection - Eye Eye exam: Present: normal appearance, EOMI Pupils: Present: normal accommodation - ENT ENT exam: Present: mucous membranes moist, TM's normal bilaterally - Neck Neck exam: Present: normal inspection, full ROM. Absent: tenderness - Respiratory Respiratory exam: Present: normal lung sounds bilaterally. Absent: respiratory distress, wheezes, stridor - Cardiovascular Cardiovascular Exam: Present: regular rate, normal rhythm, normal heart sounds. Absent: systolic murmur, diastolic murmur, rubs, gallop - GI/Abdominal GI/Abdominal exam: Present: soft, normal bowel sounds. Absent: distended, tenderness, guarding, rebound, rigid, bruit, hernia - Rectal Rectal exam: Present: deferred - Extremities Exam Extremities exam: Present: normal inspection, full ROM, normal capillary refill - Back Exam Back exam: Present: normal inspection, full ROM. Absent: CVA tenderness (R), CVA tenderness (L) - Neurological Exam Neurological exam: Present: alert, oriented X3, CN II-XII intact, normal gait - Psychiatric Psychiatric exam: Present: normal affect, normal mood - Skin Skin exam: Present: warm, dry, intact, normal color. Absent: rash ED Course Vital Signs 12/21/21 19:23 Temperature 97.8 F Pulse Rate 77 Respiratory 18 Rate Blood Pressure 153/107 O2 Sat by Pulse 100 Oximetry ED Medical Decision Making - Lab Data Result diagrams: 12/21/21 19:53 12/21/21 19:53 Labs 12/21/21 12/21/21 12/21/21 19:53 19:53 Unknown WBC 5.9 RBC 4.44 Hgb 13.6 Hct 41.8 MCV 94 MCH 31 MCHC 33 RDW 14.0 Plt Count 181 Lymph % (Auto) 40.1 H [place] % (Auto) 6.0 Eos % (Auto) 2.2 Baso % (Auto) 0.8 Lymph # (Auto) 2.4 [place] # (Auto) 0.4 Eos # (Auto) 0.1 Baso # (Auto) 0.0 Seg Neutrophils % 50.9 Seg Neutrophils # 3.0 Sodium 138 Potassium 4.0 Chloride 103.4 Carbon Dioxide 22 Anion Gap 17 BUN 12 Creatinine 1.0 Estimated GFR > 60 BUN/Creatinine Ratio 12 Glucose 91 Calcium 9.2 Total Bilirubin 0.20 AST 20 ALT 27 Alkaline Phosphatase 122 Total Protein 7.6 Albumin 4.6 Albumin/Globulin Ratio 1.5 Urine Color Straw Urine Turbidity Clear Urine pH 6.0 Ur Specific [place] 1.035 H Urine Protein <15 mg/dl Urine Glucose (UA) Negative Urine Ketones Negative Urine Blood Negative Urine Nitrite Neg Ur Reducing Substances Not Reportable Urine Bilirubin Negative Urine Ictotest Not Reportable Urine Urobilinogen < 2.0 Ur Leukocyte Esterase Neg Urine WBC (Auto) 1.0 Urine RBC (Auto) < 1.0 - Medical Decision Making Labs noted are normal. Patient has GI consult at [facility]. Patient given referral to [place] gastroenterology. There is no nausea no vomiting no fever no chills patient tolerating p.o. intake without nausea vomiting at this time patient DC'd in stable condition at this time patient very well-hydrated well-nourished and developmentally appropriate patient is nontoxic at this time DC'd in stable condition. Critical care attestation.: If time is entered above; I have spent that time in minutes in the direct care of this critically ill patient, excluding procedure time. ED Disposition Clinical Impression: Abdominal pain Qualifiers: Abdominal location: generalized Qualified Code(s): R10.84 - Generalized abdominal pain Disposition: HOME / SELF CARE / HOMELESS Is pt being admited?: No Does the pt Need Aspirin: No Condition: Stable Instructions: Abdominal Pain, Adult Additional Instructions: Take your medications as prescribed by your primary care doctor. Follow-up with gastroenterology as directed. Return to emergency department should symptoms worsen. Referrals: PRIMARY CARE, [Primary Care Provider] - 3-5 Days Forms: Work/School Release Form(ED) Time of Disposition: 21:33
[2021-12-21 21:43] VITALS: BP 136/91
== END 2021-12-21 21:43 | disposition home or self-care (01) ==
LOC: ED 17:57
DX: R10.9 Unspecified abdominal pain (principal); I10 Essential (primary) hypertension; J45.909 Unspecified asthma, uncomplicated; Z88.0 Allergy status to penicillin; Z91.018 Allergy to other foods
CPT/HCPCS: 36415; 80053; 81001; 85025; 99283; J3490; Q0162

== ENCOUNTER 2022-01-01 14:07 | Emergency (ER) | payer MEDICARE ==
--- NOTE | 2022-01-01 18:35 | Emergency Department Report ---
ED General Adult HPI - General Chief complaint: High BP Stated complaint: HYPERTENSION PUI?: No Time Seen by Provider: 01/01/22 18:28 Source: EMS Mode of arrival: Stretcher Limitations: No Limitations - History of Present Illness Initial comments: This is a 26-year-old male with no past medical history who presents to the ED complaining of elevated blood pressure for the past 2 days. Patient states that his blood pressure has been elevated so he wanted to come in today to have it evaluated. Patient denies headache blurry vision, chest pain, shortness of breath or any other complaints. Severity scale (0 -10): 0 - Related Data Previous Rx's Medication Instructions Recorded Last Taken Type Albuterol Mdi (or & Nicu Only) 2 puff IH Q6H PRN #1 inhalation 05/10/18 Unknown Rx [ProAir HFA Inhaler] bisacodyL [Dulcolax suppos] 10 mg [place] ONCE PRN 5 Days #5 10/10/18 Unknown Rx supp.rect polyethylene glycoL 3350 [Miralax 17 gm PO BID PRN #14 packet 10/10/18 Unknown Rx 3350] Naproxen [Naprosyn TAB] 500 mg PO BID #20 tablet 11/11/18 Unknown Rx Ondansetron [Zofran ODT TAB] 4 mg PO Q8HR PRN #20 tab.rapdis 11/11/18 Unknown Rx Benzonatate [Tessalon Perles] 100 mg PO Q8HR PRN #20 capsule 11/20/18 Unknown Rx guaiFENesin [Mucinex] 600 mg PO DAILY #30 tab.er.12h 11/20/18 Unknown Rx Polyethylene Glycol 3350 [Miralax] 17 gm PO QDAY 10 Days #119 gram 02/02/19 Unknown Rx Magnesium Citrate [Citrate of 296 ml PO ONCE #1 each 05/12/19 Unknown Rx Magnesia] Albuterol Mdi (or & Nicu Only) 1 puff IH Q4-6H PRN #1 inha 09/15/19 Unknown Rx [ProAir HFA Inhaler] guaiFENesin/CODEINE [Robitussin AC] 5 ml PO Q6H PRN #120 ml 09/15/19 Unknown Rx cephALEXin [Keflex] 500 mg PO Q8HR 7 Days #21 cap 07/01/20 Unknown Rx traMADoL [Ultram] 50 mg PO Q6HR PRN #12 tablet 07/01/20 Unknown Rx Acetaminophen [Tylenol] 650 mg PO Q8HR PRN #14 capsule 08/16/20 Unknown Rx Sulfamethoxazole/Trimethoprim 1 each PO BID 7 Days #14 tablet 08/16/20 Unknown Rx [Bactrim DS TAB] Ondansetron [Zofran Odt] 4 mg PO Q8HR PRN #12 tab.rapdis 12/21/21 Unknown Rx amLODIPine 5 mg PO DAILY #30 tab 01/01/22 Unknown Rx Allergies Allergy/AdvReac Type Severity Reaction Status Date / Time lemon Allergy Unknown Verified 11/11/18 11:46 [place] Allergy Unknown Verified 11/11/18 11:46 Penicillins Allergy Rash Verified 11/11/18 11:46 pineapple Allergy Itching Verified 11/11/18 11:46 ED Review of Systems ROS: Stated complaint: HYPERTENSION Other details as noted in HPI Comment: All other systems reviewed and negative ED Past Medical Hx - Past Medical History Hx Hypertension: Yes Hx Headaches / Migraines: Yes Hx Psychiatric Treatment: Yes (bipolar,schizophrinic,) Hx Asthma: Yes Hx HIV: Yes (non-detectable) Additional medical history: gonorrhea - Surgical History Additional Surgical History: ear tubes - Social History Smoking Status: Never Smoker Substance Use Type: None - Medications Home Medications: Home Medications Medication Instructions Recorded Confirmed Last Taken Type Albuterol Mdi (or & Nicu Only) 2 puff IH Q6H PRN #1 inhalation 05/10/18 09/20/18 Unknown Rx [ProAir HFA Inhaler] bisacodyL [Dulcolax suppos] 10 mg [place] ONCE PRN 5 Days #5 10/10/18 Unknown Rx supp.rect polyethylene glycoL 3350 [Miralax 17 gm PO BID PRN #14 packet 10/10/18 Unknown Rx 3350] Naproxen [Naprosyn TAB] 500 mg PO BID #20 tablet 11/11/18 Unknown Rx Ondansetron [Zofran ODT TAB] 4 mg PO Q8HR PRN #20 tab.rapdis 11/11/18 Unknown Rx Benzonatate [Tessalon Perles] 100 mg PO Q8HR PRN #20 capsule 11/20/18 Unknown Rx guaiFENesin [Mucinex] 600 mg PO DAILY #30 tab.er.12h 11/20/18 Unknown Rx Polyethylene Glycol 3350 [Miralax] 17 gm PO QDAY 10 Days #119 gram 02/02/19 Unknown Rx Magnesium Citrate [Citrate of 296 ml PO ONCE #1 each 05/12/19 Unknown Rx Magnesia] Albuterol Mdi (or & Nicu Only) 1 puff IH Q4-6H PRN #1 inha 09/15/19 Unknown Rx [ProAir HFA Inhaler] guaiFENesin/CODEINE [Robitussin AC] 5 ml PO Q6H PRN #120 ml 09/15/19 Unknown Rx cephALEXin [Keflex] 500 mg PO Q8HR 7 Days #21 cap 07/01/20 Unknown Rx traMADoL [Ultram] 50 mg PO Q6HR PRN #12 tablet 07/01/20 Unknown Rx Acetaminophen [Tylenol] 650 mg PO Q8HR PRN #14 capsule 08/16/20 Unknown Rx Sulfamethoxazole/Trimethoprim 1 each PO BID 7 Days #14 tablet 08/16/20 Unknown Rx [Bactrim DS TAB] Ondansetron [Zofran Odt] 4 mg PO Q8HR PRN #12 tab.rapdis 12/21/21 Unknown Rx amLODIPine 5 mg PO DAILY #30 tab 01/01/22 Unknown Rx ED Physical Exam - General Limitations: No Limitations General appearance: alert, in no apparent distress - Head Head exam: Present: atraumatic, normocephalic - Eye Eye exam: Present: normal appearance - ENT ENT exam: Present: mucous membranes moist - Neck Neck exam: Present: normal inspection - Respiratory Respiratory exam: Present: normal lung sounds bilaterally. Absent: respiratory distress - Cardiovascular Cardiovascular Exam: Present: regular rate, normal rhythm. Absent: systolic murmur, diastolic murmur, rubs, gallop - GI/Abdominal GI/Abdominal exam: Present: soft, normal bowel sounds - Rectal Rectal exam: Present: deferred - Extremities Exam Extremities exam: Present: normal inspection - Back Exam Back exam: Present: normal inspection - Neurological Exam Neurological exam: Present: alert, oriented X3 - Psychiatric Psychiatric exam: Present: normal affect, normal mood - Skin Skin exam: Present: warm, dry, intact, normal color. Absent: rash ED Course Vital Signs 01/01/22 01/01/22 14:21 18:23 Temperature 98.6 F Pulse Rate 130 H 87 Respiratory 16 20 Rate Blood Pressure 164/105 143/97 [Right] O2 Sat by Pulse 98 99 Oximetry ED Medical Decision Making - Medical Decision Making 26-year-old male presents with elevated blood pressure. Upon reevaluation and reassessment blood pressure reduced. Discussed with patient blood pressure management with a low dose amlodipine and to follow-up with primary care physician. Patient is ambulatory, speaking in clear sentences has no neurodeficit and understands all instructions. Critical care attestation.: If time is entered above; I have spent that time in minutes in the direct care of this critically ill patient, excluding procedure time. ED Disposition Clinical Impression: Elevated blood pressure reading Disposition: 01 HOME / SELF CARE / HOMELESS Is pt being admited?: No Does the pt Need Aspirin: No Condition: Stable Instructions: Hypertension, Adult, [id number], Managing Your Hypertension Additional Instructions: Make sure to follow up with the primary care physician as discussed. Take all your medications as you've been prescribed. If you have any worsening symptoms or develop new symptoms please return to ED immediately. Prescriptions: amLODIPine 5 mg PO DAILY #30 tab Referrals: [facility] [Outside] - 3-5 Days [facility] [Outside] - 3-5 Days [facility] [Outside] - 3-5 Days Forms: Work/School Release Form(ED) Time of Disposition: 18:38
[2022-01-01 19:02] VITALS: BP 114/78
== END 2022-01-01 19:02 | disposition home or self-care (01) ==
LOC: ED 14:07
DX: I10 Essential (primary) hypertension (principal); G43.909 Migraine, unspecified, not intractable, without status migrainosus; J45.909 Unspecified asthma, uncomplicated; F31.9 Bipolar disorder, unspecified; Z21 Asymptomatic human immunodeficiency virus [HIV] infection status; Z79.899 Other long term (current) drug therapy; Z91.02 Food additives allergy status; Z88.0 Allergy status to penicillin; Z91.018 Allergy to other foods
CPT/HCPCS: 99283

== ENCOUNTER 2022-04-20 16:48 | Emergency (ER) | payer MEDICARE ==
[2022-04-20 16:55] VITALS: BP 142/96
[2022-04-20] MEDS ORDERED: ALUM-MAG HYDROXIDE-SIMETHICONE 200-200-20MG/5ML ORAL LIQD 30 ML PO ONE (22:01)
[2022-04-20] MEDS ORDERED: LIDOCAINE VISCOUS 2% 15 ML ORAL LIQD PO ONE (22:01)
--- NOTE | 2022-04-20 22:07 | Emergency Department Report ---
ED Abdominal Pain HPI - General Chief Complaint: Abdominal Pain Stated Complaint: ABD PAIN PUI?: No Time Seen by Provider: 04/20/22 22:01 Source: patient, EMS Mode of arrival: Ambulatory Limitations: No Limitations - History of Present Illness Initial Comments: Patient is a 26-year-old male with a complaint of abdominal pain. Patient states abdominal pain started a week ago. Patient states the abdominal pain is in the epigastric region. Patient states abdominal pain is worsening. Patient describes the pain as a burning sensation. Patient denies fever and chills. Patient denies nausea vomiting. Patient states the pain is worse with spicy food. Patient states also had a lot of burping. Patient states he has not seen his primary care for this problem. Patient denies diarrhea. Patient denies recent travel. Patient denies recent international travel. Patient denies exposure to the novel coronavirus. Patient denies sick contacts. Patient denies fever and chills. Patient denies cough. Patient denies di arrhea. Patient denies coming in contact with anybody with symptoms of the novel coronavirus. MD Complaint: abdominal pain -: Sudden Location: epigastric Radiation: none Migration to: no migration Severity scale (0 -10): 4 Quality: burning Improves With: rest Worsens With: eating Associated Symptoms: denies: nausea, vomiting, diarrhea, fever, chills, constipation, dysuria, hematemesis, hematochezia, melena, hematuria, anorexia, syncope - Related Data Previous Rx's Medication Instructions Recorded Last Taken Type Albuterol Mdi (or & Nicu Only) 2 puff IH Q6H PRN #1 inhalation 05/10/18 Unknown Rx [ProAir HFA Inhaler] bisacodyL [Dulcolax suppos] 10 mg [place] ONCE PRN 5 Days #5 10/10/18 Unknown Rx supp.rect polyethylene glycoL 3350 [Miralax 17 gm PO BID PRN #14 packet 10/10/18 Unknown Rx 3350] Naproxen [Naprosyn TAB] 500 mg PO BID #20 tablet 11/11/18 Unknown Rx Ondansetron [Zofran ODT TAB] 4 mg PO Q8HR PRN #20 tab.rapdis 11/11/18 Unknown Rx Benzonatate [Tessalon Perles] 100 mg PO Q8HR PRN #20 capsule 11/20/18 Unknown Rx guaiFENesin [Mucinex] 600 mg PO DAILY #30 tab.er.12h 11/20/18 Unknown Rx Polyethylene Glycol 3350 [Miralax] 17 gm PO QDAY 10 Days #119 gram 02/02/19 Unknown Rx Magnesium Citrate [Citrate of 296 ml PO ONCE #1 each 05/12/19 Unknown Rx Magnesia] Albuterol Mdi (or & Nicu Only) 1 puff IH Q4-6H PRN #1 inha 09/15/19 Unknown Rx [ProAir HFA Inhaler] guaiFENesin/CODEINE [Robitussin AC] 5 ml PO Q6H PRN #120 ml 09/15/19 Unknown Rx cephALEXin [Keflex] 500 mg PO Q8HR 7 Days #21 cap 07/01/20 Unknown Rx traMADoL [Ultram] 50 mg PO Q6HR PRN #12 tablet 07/01/20 Unknown Rx Acetaminophen [Tylenol] 650 mg PO Q8HR PRN #14 capsule 08/16/20 Unknown Rx Sulfamethoxazole/Trimethoprim 1 each PO BID 7 Days #14 tablet 08/16/20 Unknown Rx [Bactrim DS TAB] Ondansetron [Zofran Odt] 4 mg PO Q8HR PRN #12 tab.rapdis 12/21/21 Unknown Rx amLODIPine 5 mg PO DAILY #30 tab 01/01/22 Unknown Rx Omeprazole 40 mg PO DAILY 30 Days #30 tab 04/20/22 Unknown Rx Allergies Allergy/AdvReac Type Severity Reaction Status Date / Time lemon Allergy Unknown Verified 04/20/22 16:55 klamath Allergy Unknown Verified 04/20/22 16:55 Penicillins Allergy Rash Verified 04/20/22 16:55 pineapple Allergy Itching Verified 04/20/22 16:55 ED Review of Systems ROS: Stated complaint: ABD PAIN Other details as noted in HPI Constitutional: denies: chills, fever Eyes: denies: eye pain, eye discharge, vision change ENT: denies: ear pain, throat pain Respiratory: denies: cough, shortness of breath, wheezing Cardiovascular: denies: chest pain, palpitations Endocrine: no symptoms reported Gastrointestinal: as per HPI, abdominal pain. denies: nausea, diarrhea Genitourinary: denies: urgency, dysuria Musculoskeletal: denies: back pain, joint swelling, arthralgia Skin: denies: rash, lesions Neurological: denies: headache, weakness, paresthesias Psychiatric: denies: anxiety, depression Hematological/Lymphatic: denies: easy bleeding, easy bruising ED Past Medical Hx - Past Medical History Previous Medical History?: Yes Hx Hypertension: Yes Hx Headaches / Migraines: Yes Hx Psychiatric Treatment: Yes (bipolar,schizophrinic,) Hx Asthma: Yes Hx HIV: Yes (non-detectable) Additional medical history: gonorrhea - Surgical History Past Surgical History?: Yes Additional Surgical History: ear tubes - Family History Family history: no significant - Social History Smoking Status: Never Smoker Substance Use Type: None - Medications Home Medications: Home Medications Medication Instructions Recorded Confirmed Last Taken Type Albuterol Mdi (or & Nicu Only) 2 puff IH Q6H PRN #1 inhalation 05/10/18 09/20/18 Unknown Rx [ProAir HFA Inhaler] bisacodyL [Dulcolax suppos] 10 mg [place] ONCE PRN 5 Days #5 10/10/18 Unknown Rx supp.rect polyethylene glycoL 3350 [Miralax 17 gm PO BID PRN #14 packet 10/10/18 Unknown Rx 3350] Naproxen [Naprosyn TAB] 500 mg PO BID #20 tablet 11/11/18 Unknown Rx Ondansetron [Zofran ODT TAB] 4 mg PO Q8HR PRN #20 tab.rapdis 11/11/18 Unknown Rx Benzonatate [Tessalon Perles] 100 mg PO Q8HR PRN #20 capsule 11/20/18 Unknown Rx guaiFENesin [Mucinex] 600 mg PO DAILY #30 tab.er.12h 11/20/18 Unknown Rx Polyethylene Glycol 3350 [Miralax] 17 gm PO QDAY 10 Days #119 gram 02/02/19 Unknown Rx Magnesium Citrate [Citrate of 296 ml PO ONCE #1 each 05/12/19 Unknown Rx Magnesia] Albuterol Mdi (or & Nicu Only) 1 puff IH Q4-6H PRN #1 inha 09/15/19 Unknown Rx [ProAir HFA Inhaler] guaiFENesin/CODEINE [Robitussin AC] 5 ml PO Q6H PRN #120 ml 09/15/19 Unknown Rx cephALEXin [Keflex] 500 mg PO Q8HR 7 Days #21 cap 07/01/20 Unknown Rx traMADoL [Ultram] 50 mg PO Q6HR PRN #12 tablet 07/01/20 Unknown Rx Acetaminophen [Tylenol] 650 mg PO Q8HR PRN #14 capsule 08/16/20 Unknown Rx Sulfamethoxazole/Trimethoprim 1 each PO BID 7 Days #14 tablet 08/16/20 Unknown Rx [Bactrim DS TAB] Ondansetron [Zofran Odt] 4 mg PO Q8HR PRN #12 tab.rapdis 12/21/21 Unknown Rx amLODIPine 5 mg PO DAILY #30 tab 01/01/22 Unknown Rx Omeprazole 40 mg PO DAILY 30 Days #30 tab 04/20/22 Unknown Rx ED Physical Exam - General Limitations: No Limitations General appearance: alert, in no apparent distress - Head Head exam: Present: atraumatic, normocephalic - Eye Eye exam: Present: normal appearance - ENT ENT exam: Present: mucous membranes moist - Neck Neck exam: Present: normal inspection - Respiratory Respiratory exam: Present: normal lung sounds bilaterally. Absent: respiratory distress - Cardiovascular Cardiovascular Exam: Present: regular rate, normal rhythm. Absent: systolic murmur, diastolic murmur, rubs, gallop - GI/Abdominal GI/Abdominal exam: Present: soft, tenderness (Epigastric tenderness to palpation.), normal bowel sounds - Rectal Rectal exam: Present: deferred - Extremities Exam Extremities exam: Present: normal inspection - Back Exam Back exam: Present: normal inspection - Neurological Exam Neurological exam: Present: alert, oriented X3 - Psychiatric Psychiatric exam: Present: normal affect, normal mood - Skin Skin exam: Present: warm, dry, intact, normal color. Absent: rash ED Course Vital Signs 04/20/22 16:53 Temperature 98.8 F Pulse Rate 71 Respiratory 18 Rate Blood Pressure 142/96 [Left] O2 Sat by Pulse 98 Oximetry - Reevaluation(s) Reevaluation #1: Patient confided consistent with gastritis and acid reflux. I discussed all results and clinical findings with patient. I discussed plan of care with patient. Patient agrees with plan of care. Patient is stable for discharge. Patient will be discharged home. Patient given discharge instructions. Patient voiced understanding of discharge instructions. 04/20/22 23:37 ED Medical Decision Making - Lab Data Result diagrams: 04/20/22 22:17 04/20/22 22:17 - Medical Decision Making Patient is a 26-year-old that presents emergency room with complaints of epigastric pain. Patient had tenderness to the epigastric region. Patient had labs done which were essentially unremarkable. Patient CBC was negative. Patient's lipase was negative. Patient differential was for pancreatitis however with a normal lipase is unlikely. Patient was given a GI cocktail and his symptoms improved or essentially resolved. Patient is stable for discharge. Patient does not require any further emergency medical service. Patient not require inpatient service. I discussed all results and clinical findings with patient. I discussed plan of care with patient. Patient agrees with plan of care. Patient is stable for discharge. Patient will be discharged home. Patient given discharge instructions. Patient voiced understanding of discharge instructions. - Differential Diagnosis Abdominal pain, gastritis, pancreatitis Critical care attestation.: If time is entered above; I have spent that time in minutes in the direct care of this critically ill patient, excluding procedure time. ED Disposition Clinical Impression: Abdominal pain Qualifiers: Abdominal location: epigastric Qualified Code(s): R10.13 - Epigastric pain Gastritis Qualifiers: Gastritis type: unspecified gastritis Chronicity: acute Gastritis bleeding: without bleeding Qualified Code(s): K29.00 - Acute gastritis without bleeding GERD with esophagitis Qualifiers: Esophagitis bleeding: without hemorrhage Qualified Code(s): K21.00 - Gastro-e sophageal reflux disease with esophagitis, without bleeding Disposition: 01 HOME / SELF CARE / HOMELESS Is pt being admited?: No Does the pt Need Aspirin: No Condition: Stable Instructions: Gastritis, Adult, Gastritis, Adult, [id number], Heartburn, [id number] Additional Instructions: Patient to follow-up with primary care in 2 to 3 days. Patient to follow-up with gastroenterology in 2 to 3 days. Patient to rest. Patient to increase water. Patient to eat a reflux diet. Patient to avoid spicy foods. Patient to take Tylenol as needed for pain. Patient to take meds as directed. Patient to return to the ER if condition worsens, changes or new symptoms arise. Prescriptions: Omeprazole 40 mg PO DAILY 30 Days #30 tab Referrals: SHERON SWAN MD [Staff Physician] - 2-3 Days GILMA LION MD [Staff Physician] - 2-3 Days Time of Disposition: 23:42
[2022-04-20 22:46] LABS: Hematocrit 41.6 % (35.5-45.6); Mean Corpuscular HGB Conc 34 % (32-34); Mean Corpuscular Volume 93 fl (84-94); Platelet Count 184 K/mm3 (140-440); Red Blood Count 4.48 M/mm3 (3.65-5.03); Red Cell Distribution Width 13.8 % (13.2-15.2)
[2022-04-20 22:59] LABS: Alanine Aminotransferase 24 units/L (7-56); Albumin 4.9 g/dL (3.9-5); BUN/Creatinine Ratio 12; Blood Urea Nitrogen 11 mg/dL (9-20); Calcium 9.5 mg/dL (8.4-10.2); Hemolysis Index 10
== END 2022-04-21 00:46 | disposition home or self-care (01) ==
LOC: ED 16:48
DX: R10.9 Unspecified abdominal pain (principal); K29.70 Gastritis, unspecified, without bleeding; K21.00 Gastro-esophageal reflux disease with esophagitis, without bleeding; Z88.0 Allergy status to penicillin; Z91.018 Allergy to other foods; I10 Essential (primary) hypertension; J45.909 Unspecified asthma, uncomplicated
CPT/HCPCS: 36415; 80053; 83690; 85027; 99283

== ENCOUNTER 2022-05-01 21:11 | Emergency (ER) | payer MEDICARE ==
--- NOTE | 2022-05-02 01:42 | XRay Report ---
ABDOMEN 1 VIEW 05/02/2022 12:35 AM INDICATION / CLINICAL INFORMATION: abd pain constipation. Abdomen 2 views INDICATION: Constipation FINDINGS: There is moderate constipation the right colon. No free air is seen. No large calcification s are identified. Signer Name: Olvin Sun MD Signed: 05/02/2022 1:38 AM Workstation Name: [id number]
[2022-05-02 01:49] LABS: Basophils % (Auto) 0.6 % (0.0-1.8); Eosinophils % (Auto) 0.5 % (0.0-4.3); Hematocrit 40.2 % (35.5-45.6); Hemoglobin 13.2 gm/dl (11.8-15.2); Lymphocytes % (Auto) 19.2 % (13.4-35.0); Mean Corpuscular HGB Conc 33 % (32-34); Mean Corpuscular Volume 92 fl (84-94); Monocytes # (Auto) 0.8 K/mm3 (0.0-0.8); Monocytes % (Auto) 14.5 % (0.0-7.3); Platelet Count 147 K/mm3 (140-440); Red Blood Count 4.36 M/mm3 (3.65-5.03); Red Cell Distribution Width 13.9 % (13.2-15.2)
[2022-05-02 01:50] LABS: Alanine Aminotransferase 32 units/L (7-56); Albumin 4.6 g/dL (3.9-5); BUN/Creatinine Ratio 8; Blood Urea Nitrogen 11 mg/dL (9-20); Calcium 9.3 mg/dL (8.4-10.2); Hemolysis Index 12
--- NOTE | 2022-05-02 01:53 | Emergency Department Report ---
ED Abdominal Pain HPI - General Chief Complaint: Abdominal Pain Stated Complaint: ABD PAIN Time Seen by Provider: 05/02/22 01:06 Source: patient, EMS Mode of arrival: Stretcher Limitations: No Limitations - History of Present Illness Initial Comments: A 26-year-old male who presents for generalized abdominal pain and constipation for the past week. Patient denies fevers or chills no nausea or vomiting. Patient is tolerating p.o. intake. Patient is having small hard stools. Rated at 4/10 at this time. Symptoms are exacerbated by nothing. Symptoms are relieved by nothing tried. MD Complaint: abdominal pain - Related Data Previous Rx's Medication Instructions Recorded Last Taken Type Albuterol Mdi (or & Nicu Only) 2 puff IH Q6H PRN #1 inhalation 05/10/18 Unknown Rx [ProAir HFA Inhaler] bisacodyL [Dulcolax suppos] 10 mg PA ONCE PRN 5 Days #5 10/10/18 Unknown Rx supp.rect polyethylene glycoL 3350 [Miralax 17 gm PO BID PRN #14 packet 10/10/18 Unknown Rx 3350] Naproxen [Naprosyn TAB] 500 mg PO BID #20 tablet 11/11/18 Unknown Rx Ondansetron [Zofran ODT TAB] 4 mg PO Q8HR PRN #20 tab.rapdis 11/11/18 Unknown Rx Benzonatate [Tessalon Perles] 100 mg PO Q8HR PRN #20 capsule 11/20/18 Unknown Rx guaiFENesin [Mucinex] 600 mg PO DAILY #30 tab.er.12h 11/20/18 Unknown Rx Polyethylene Glycol 3350 [Miralax] 17 gm PO QDAY 10 Days #119 gram 02/02/19 Unknown Rx Magnesium Citrate [Citrate of 296 ml PO ONCE #1 each 05/12/19 Unknown Rx Magnesia] Albuterol Mdi (or & Nicu Only) 1 puff IH Q4-6H PRN #1 inha 09/15/19 Unknown Rx [ProAir HFA Inhaler] guaiFENesin/CODEINE [Robitussin AC] 5 ml PO Q6H PRN #120 ml 09/15/19 Unknown Rx cephALEXin [Keflex] 500 mg PO Q8HR 7 Days #21 cap 07/01/20 Unknown Rx traMADoL [Ultram] 50 mg PO Q6HR PRN #12 tablet 07/01/20 Unknown Rx Acetaminophen [Tylenol] 650 mg PO Q8HR PRN #14 capsule 08/16/20 Unknown Rx Sulfamethoxazole/Trimethoprim 1 each PO BID 7 Days #14 tablet 08/16/20 Unknown Rx [Bactrim DS TAB] Ondansetron [Zofran Odt] 4 mg PO Q8HR PRN #12 tab.rapdis 12/21/21 Unknown Rx amLODIPine 5 mg PO DAILY #30 tab 01/01/22 Unknown Rx Omeprazole 40 mg PO DAILY 30 Days #30 tab 04/20/22 Unknown Rx bisacodyL [Dulcolax suppos] 10 mg PA QDAY PRN #7 supp.rect 05/02/22 Unknown Rx polyethylene glycoL 3350 [Miralax 17 gm PO BID 7 Days #14 packet 05/02/22 Unknown Rx 3350] Allergies Allergy/AdvReac Type Severity Reaction Status Date / Time lemon Allergy Unknown Verified 04/20/22 16:55 red devil Allergy Unknown Verified 04/20/22 16:55 Penicillins Allergy Rash Verified 04/20/22 16:55 pineapple Allergy Itching Verified 04/20/22 16:55 ED Review of Systems ROS: Stated complaint: ABD PAIN Other details as noted in HPI Constitutional: denies: chills, fever Eyes: denies: eye pain, eye discharge, vision change ENT: denies: ear pain, throat pain Respiratory: denies: cough, shortness of breath, wheezing Cardiovascular: denies: chest pain, palpitations Endocrine: no symptoms reported Gastrointestinal: abdominal pain, constipation. denies: nausea, vomiting, diarrhea, hematemesis, melena, hematochezia Genitourinary: denies: urgency, dysuria, frequency, hematuria Musculoskeletal: as per HPI Skin: denies: rash, lesions Neurological: denies: headache, weakness, paresthesias, vertigo Psychiatric: denies: anxiety, depression Hematological/Lymphatic: denies: easy bleeding, easy bruising ED Past Medical Hx - Past Medical History Hx Hypertension: Yes Hx Headaches / Migraines: Yes Hx Psychiatric Treatment: Yes (bipolar,schizophrinic,) Hx Asthma: Yes Hx HIV: Yes (non-detectable) Additional medical history: gonorrhea - Surgical History Additional Surgical History: ear tubes - Social History Smoking Status: Never Smoker Substance Use Type: None - Medications Home Medications: Home Medications Medication Instructions Recorded Confirmed Last Taken Type Albuterol Mdi (or & Nicu Only) 2 puff IH Q6H PRN #1 inhalation 05/10/18 09/20/18 Unknown Rx [ProAir HFA Inhaler] bisacodyL [Dulcolax suppos] 10 mg PA ONCE PRN 5 Days #5 10/10/18 Unknown Rx supp.rect polyethylene glycoL 3350 [Miralax 17 gm PO BID PRN #14 packet 10/10/18 Unknown Rx 3350] Naproxen [Naprosyn TAB] 500 mg PO BID #20 tablet 11/11/18 Unknown Rx Ondansetron [Zofran ODT TAB] 4 mg PO Q8HR PRN #20 tab.rapdis 11/11/18 Unknown Rx Benzonatate [Tessalon Perles] 100 mg PO Q8HR PRN #20 capsule 11/20/18 Unknown Rx guaiFENesin [Mucinex] 600 mg PO DAILY #30 tab.er.12h 11/20/18 Unknown Rx Polyethylene Glycol 3350 [Miralax] 17 gm PO QDAY 10 Days #119 gram 02/02/19 Unknown Rx Magnesium Citrate [Citrate of 296 ml PO ONCE #1 each 05/12/19 Unknown Rx Magnesia] Albuterol Mdi (or & Nicu Only) 1 puff IH Q4-6H PRN #1 inha 09/15/19 Unknown Rx [ProAir HFA Inhaler] guaiFENesin/CODEINE [Robitussin AC] 5 ml PO Q6H PRN #120 ml 09/15/19 Unknown Rx cephALEXin [Keflex] 500 mg PO Q8HR 7 Days #21 cap 07/01/20 Unknown Rx traMADoL [Ultram] 50 mg PO Q6HR PRN #12 tablet 07/01/20 Unknown Rx Acetaminophen [Tylenol] 650 mg PO Q8HR PRN #14 capsule 08/16/20 Unknown Rx Sulfamethoxazole/Trimethoprim 1 each PO BID 7 Days #14 tablet 08/16/20 Unknown Rx [Bactrim DS TAB] Ondansetron [Zofran Odt] 4 mg PO Q8HR PRN #12 tab.rapdis 12/21/21 Unknown Rx amLODIPine 5 mg PO DAILY #30 tab 01/01/22 Unknown Rx Omeprazole 40 mg PO DAILY 30 Days #30 tab 08/05/22 Unknown Rx bisacodyL [Dulcolax suppos] 10 mg PA QDAY PRN #7 supp.rect 05/02/22 Unknown Rx polyethylene glycoL 3350 [Miralax 17 gm PO BID 7 Days #14 packet 05/02/22 Unknown Rx 3350] ED Physical Exam - General Limitations: No Limitations General appearance: alert, in no apparent distress - Head Head exam: Present: normocephalic, normal inspection - Eye Eye exam: Present: EOMI Pupils: Present: normal accommodation - ENT ENT exam: Present: mucous membranes moist - Neck Neck exam: Present: normal inspection, full ROM. Absent: tenderness, lymphadenopathy - Respiratory Respiratory exam: Present: normal lung sounds bilaterally. Absent: respiratory distress, wheezes, stridor, chest wall tenderness - Cardiovascular Cardiovascular Exam: Present: regular rate, normal rhythm, normal heart sounds. Absent: systolic murmur, diastolic murmur, rubs, gallop - GI/Abdominal GI/Abdominal exam: Present: soft, distended (Mildly distended), normal bowel s ounds. Absent: tenderness, guarding, rebound, rigid, bruit, hernia - Rectal Rectal exam: Present: deferred - exam: Present: other (Referred) - Extremities Exam Extremities exam: Present: normal inspection, full ROM, normal capillary refill. Absent: tenderness, pedal edema - Back Exam Back exam: Present: normal inspection, full ROM. Absent: CVA tenderness (R), CVA tenderness (L) - Neurological Exam Neurological exam: Present: alert, oriented X3, CN II-XII intact, normal gait - Expanded Neurological Exam Expanded Patient oriented to: Present: person, place, time Speech: Present: fluid speech Best Eye Response (Meridian): (4) open spontaneously Best Motor Response (Meridian): (6) obeys commands Best Verbal Response (Blank): (5) oriented Meridian Total: 15 - Psychiatric Psychiatric exam: Present: normal affect, normal mood - Skin Skin exam: Present: warm, dry, intact, normal color. Absent: rash ED Course Vital Signs 05/01/22 22:30 Temperature 98 F Pulse Rate 110 H Respiratory 16 Rate Blood Pressure 140/90 [Right] O2 Sat by Pulse 98 Oximetry ED Medical Decision Making - Radiology Data Radiology results: report reviewed, image reviewed ABDOMEN 1 VIEW 05/02/2022 12:35 AM INDICATION / CLINICAL INFORMATION: abd pain constipation. Abdomen 2 views INDICATION: Constipation FINDINGS: There is moderate constipation the right colon. No free air is seen. No large calcifications are identified. Signer Name: Olvin Slater MD Signed: 05/02/2022 1:38 AM Workstation Name: [id number] Transcribed By: CW Dictated By: KEYUR SLATER MD Electronically Authenticated By: KEYUR SLATER MD Signed Date/Time: 05/02/22137 DD/ 6 TD/TT: - Medical Decision Making KUB consistent with constipation plan DC to home with prescriptions. Continue to hydrate as directed. Follow-up with your doctor in 2 to 3 days. Return to emergency department should symptoms worsen. Critical care attestation.: If time is entered above; I have spent that time in minutes in the direct care of this critically ill patient, excluding procedure time. ED Disposition Clinical Impression: Constipation Qualifiers: Constipation type: unspecified constipation type Qualified Code(s): K59.00 - Constipation, unspecified Disposition: 01 HOME / SELF CARE / HOMELESS Is pt being admited?: No Does the pt Need Aspirin: No Condition: Stable Instructions: Constipation, Adult, [id number] Additional Instructions: Take medications as prescribed, hydrate as directed, follow-up with your doctor in 2 to 3 days. Prescriptions: bisacodyL [Dulcolax suppos] 10 mg PA QDAY PRN #7 supp.rect PRN Reason: Constipation polyethylene glycoL 3350 [Miralax 3350] 17 gm PO BID 7 Days #14 packet Referrals: [facility] [Provider Group] - 3-5 Days Forms: Work/School Release Form(ED) Time of Disposition: 01:56
[2022-05-02 02:21] VITALS: BP 132/87
== END 2022-05-02 02:18 | disposition home or self-care (01) ==
LOC: ED 21:11
DX: K59.00 Constipation, unspecified (principal); I10 Essential (primary) hypertension; G43.909 Migraine, unspecified, not intractable, without status migrainosus; F31.9 Bipolar disorder, unspecified; J45.909 Unspecified asthma, uncomplicated; Z21 Asymptomatic human immunodeficiency virus [HIV] infection status; Z88.0 Allergy status to penicillin; Z91.02 Food additives allergy status; Z79.899 Other long term (current) drug therapy
CPT/HCPCS: 36415; 74018; 80053; 83690; 85025; 99284

== ENCOUNTER 2022-05-18 18:37 | Emergency (ER) | payer MEDICARE ==
[2022-05-18 18:48] VITALS: BP 150/90
[2022-05-18 21:20] LABS: Alanine Aminotransferase 25 units/L (7-56); BUN/Creatinine Ratio 13; Blood Urea Nitrogen 14 mg/dL (9-20); Calcium 10.8 mg/dL (8.4-10.2); Hemolysis Index 11
[2022-05-18 21:52] LABS: Hemoglobin 14.4 gm/dl (11.8-15.2); Mean Corpuscular HGB Conc 34 % (32-34); Mean Corpuscular Volume 93 fl (84-94); Mean Platelet Volume 9.4 fl (6-12); Platelet Count 205 K/mm3 (140-440); Red Blood Count 4.64 M/mm3 (3.65-5.03); Red Cell Distribution Width 13.9 % (13.2-15.2)
[2022-05-18 21:53] LABS: Basophils % (Auto) 1.8 % (0.0-1.8); Eosinophils % (Auto) 1.6 % (0.0-4.3); Lymphocytes # (Auto) 2.8 K/mm3 (1.2-5.4); Lymphocytes % (Auto) 41.3 % (13.4-35.0)
[2022-05-18 21:54] LABS: Basophils # (Auto) 0.1 K/mm3 (0.0-0.1); Eosinophils # (Auto) 0.1 K/mm3 (0.0-0.4); Monocytes # (Auto) 0.5 K/mm3 (0.0-0.8)
[2022-05-18] MEDS ORDERED: FAMOTIDINE 20 MG TAB PO ONE (22:36)
[2022-05-18] MEDS ORDERED: DICYCLOMINE 20 MG TAB PO ONE (22:36)
--- NOTE | 2022-05-18 23:16 | Emergency Department Report ---
ED General Adult HPI - General Chief complaint: Abdominal Pain Stated complaint: ABD PAIN [id number] Source: EMS Mode of arrival: Stretcher Limitations: No Limitations - History of Present Illness Initial comments: Patient is a 26-year-old male with a history of HIV, hypertension, migraine headaches, bipolar disorder, paranoid schizophrenia, GERD and asthma who presents to the ED with complaint of acute onset persistent intermittent abdominal pain with intermittent constipation for the last 2 months. Patient states that the pain initially is crampy and gets relieved with bowel movement which he describes as hard. Patient denies fever, chills, nausea and vomiting, dizziness, syncope, chest pain, shortness of breath, diarrhea, dysuria, urinary frequency and urgency, change in vision, cough or headache. MD Complaint: CONSTIPATION; Abdominal pain -: Gradual, month(s) (2) Location: abdomen Radiation: non-radiation Severity scale (0 -10): 2 Quality: dull Consistency: intermittent Improves with: none Worsens with: none Associated Symptoms: denies other symptoms. denies: confusion, chest pain, cough, diaphoresis, fever/chills, headaches, loss of appetite, malaise, nausea/vomiting, rash, seizure, shortness of breath, syncope, weakness, other Treatments Prior to Arrival: none - Related Data Previous Rx's Medication Instructions Recorded Last Taken Type Albuterol Mdi (or & Nicu Only) 2 puff IH Q6H PRN #1 inhalation 05/10/18 Unknown Rx [ProAir HFA Inhaler] bisacodyL [Dulcolax suppos] 10 mg MO ONCE PRN 5 Days #5 10/10/18 Unknown Rx supp.rect polyethylene glycoL 3350 [Miralax 17 gm PO BID PRN #14 packet 10/10/18 Unknown Rx 3350] Naproxen [Naprosyn TAB] 500 mg PO BID #20 tablet 11/11/18 Unknown Rx Ondansetron [Zofran ODT TAB] 4 mg PO Q8HR PRN #20 tab.rapdis 11/11/18 Unknown Rx Benzonatate [Tessalon Perles] 100 mg PO Q8HR PRN #20 capsule 11/20/18 Unknown Rx guaiFENesin [Mucinex] 600 mg PO DAILY #30 tab.er.12h 11/20/18 Unknown Rx Polyethylene Glycol 3350 [Miralax] 17 gm PO QDAY 10 Days #119 gram 02/02/19 Unk nown Rx Magnesium Citrate [Citrate of 296 ml PO ONCE #1 each 05/12/19 Unknown Rx Magnesia] Albuterol Mdi (or & Nicu Only) 1 puff IH Q4-6H PRN #1 inha 09/15/19 Unknown Rx [ProAir HFA Inhaler] guaiFENesin/CODEINE [Robitussin AC] 5 ml PO Q6H PRN #120 ml 09/15/19 Unknown Rx cephALEXin [Keflex] 500 mg PO Q8HR 7 Days #21 cap 07/01/20 Unknown Rx traMADoL [Ultram] 50 mg PO Q6HR PRN #12 tablet 07/01/20 Unknown Rx Acetaminophen [Tylenol] 650 mg PO Q8HR PRN #14 capsule 08/16/20 Unknown Rx Sulfamethoxazole/Trimethoprim 1 each PO BID 7 Days #14 tablet 08/16/20 Unknown Rx [Bactrim DS TAB] Ondansetron [Zofran Odt] 4 mg PO Q8HR PRN #12 tab.rapdis 12/21/21 Unknown Rx amLODIPine 5 mg PO DAILY #30 tab 01/01/22 Unknown Rx Omeprazole 40 mg PO DAILY 30 Days #30 tab 04/20/22 Unknown Rx bisacodyL [Dulcolax suppos] 10 mg MO QDAY PRN #7 supp.rect 05/02/22 Unknown Rx polyethylene glycoL 3350 [Miralax 17 gm PO BID 7 Days #14 packet 05/02/22 Unknown Rx 3350] Dicyclomine [Bentyl] 20 mg PO Q6H #30 tablet 05/18/22 Unknown Rx Docusate Sodium [Colace CAP] 100 mg PO BID PRN #60 capsule 05/18/22 Unknown Rx Famotidine [Pepcid] 20 mg PO BID #60 tablet 05/18/22 Unknown Rx Allergies Allergy/AdvReac Type Severity Reaction Status Date / Time lemon Allergy Unknown Verified 05/18/22 18:48 platinum Allergy Unknown Verified 05/18/22 18:48 Penicillins Allergy Rash Verified 05/18/22 18:48 pineapple Allergy Itching Verified 05/18/22 18:48 ED Review of Systems ROS: Stated complaint: ABD PAIN [id number] Other details as noted in HPI Constitutional: denies: chills, fever Eyes: denies: eye pain, eye discharge, vision change ENT: denies: ear pain, throat pain Respiratory: denies: cough, shortness of breath, wheezing Cardiovascular: denies: chest pain, palpitations Endocrine: no symptoms reported Gastrointestinal: constipation. denies: abdominal pain, nausea, vomiting, diarrhea Genitourinary: denies: urgency, dysuria Musculoskeletal: denies: back pain, joint swelling, arthralgia Skin: denies: rash, lesions Neurological: denies: headache, weakness, paresthesias Psychiatric: denies: anxiety, depression Hematological/Lymphatic: denies: easy bleeding, easy bruising ED Past Medical Hx - Past Medical History Previous Medical History?: Yes Hx Hypertension: Yes Hx Headaches / Migraines: Yes Hx Psychiatric Treatment: Yes (bipolar,schizophrinic,) Hx Asthma: Yes Hx HIV: Yes (non-detectable) Additional medical history: gonorrhea - Surgical History Additional Surgical History: ear tubes - Social History Smoking Status: Never Smoker Substance Use Type: None - Medications Home Medications: Home Medications Medication Instructions Recorded Confirmed Last Taken Type Albuterol Mdi (or & Nicu Only) 2 puff IH Q6H PRN #1 inhalation 05/10/18 09/20/18 Unknown Rx [ProAir HFA Inhaler] bisacodyL [Dulcolax suppos] 10 mg MO ONCE PRN 5 Days #5 10/10/18 Unknown Rx supp.rect polyethylene glycoL 3350 [Miralax 17 gm PO BID PRN #14 packet 10/10/18 Unknown Rx 3350] Naproxen [Naprosyn TAB] 500 mg PO BID #20 tablet 11/11/18 Unknown Rx Ondansetron [Zofran ODT TAB] 4 mg PO Q8HR PRN #20 tab.rapdis 11/11/18 Unknown Rx Benzonatate [Tessalon Perles] 100 mg PO Q8HR PRN #20 capsule 11/20/18 Unknown Rx guaiFENesin [Mucinex] 600 mg PO DAILY #30 tab.er.12h 11/20/18 Unknown Rx Polyethylene Glycol 3350 [Miralax] 17 gm PO QDAY 10 Days #119 gram 02/02/19 Unknown Rx Magnesium Citrate [Citrate of 296 ml PO ONCE #1 each 05/12/19 Unknown Rx Magnesia] Albuterol Mdi (or & Nicu Only) 1 puff IH Q4-6H PRN #1 inha 09/15/19 Unknown Rx [ProAir HFA Inhaler] guaiFENesin/CODEINE [Robitussin AC] 5 ml PO Q6H PRN #120 ml 09/15/19 Unknown Rx cephALEXin [Keflex] 500 mg PO Q8HR 7 Days #21 cap 07/01/20 Unknown Rx traMADoL [Ultram] 50 mg PO Q6HR PRN #12 tablet 07/01/20 Unknown Rx Acetaminophen [Tylenol] 650 mg PO Q8HR PRN #14 capsule 08/16/20 Unknown Rx Sulfamethoxazole/Trimethoprim 1 each PO BID 7 Days #14 tablet 08/16/20 Unknown Rx [Bactrim DS TAB] Ondansetron [Zofran Odt] 4 mg PO Q8HR PRN #12 tab.rapdis 12/21/21 Unknown Rx amLODIPine 5 mg PO DAILY #30 tab 01/01/22 Unknown Rx Omeprazole 40 mg PO DAILY 30 Days #30 tab 04/20/22 Unknown Rx bisacodyL [Dulcolax suppos] 10 mg MO QDAY PRN #7 supp.rect 05/02/22 Unknown Rx polyethylene glycoL 3350 [Miralax 17 gm PO BID 7 Days #14 packet 05/02/22 Unknown Rx 3350] Dicyclomine [Bentyl] 20 mg PO Q6H #30 tablet 05/18/22 Unknown Rx Docusate Sodium [Colace CAP] 100 mg PO BID PRN #60 capsule 05/18/22 Unknown Rx Famotidine [Pepcid] 20 mg PO BID #60 tablet 05/18/22 Unknown Rx ED Physical Exam - General Limitations: No Limitations General appearance: alert, in no apparent distress - Head Head exam: Present: atraumatic, normocephalic, normal inspection - Eye Eye exam: Present: normal appearance, PERRL, EOMI Pupils: Present: normal accommodation - ENT ENT exam: Present: normal exam, normal orophraynx, mucous membranes moist, TM's normal bilaterally, normal external ear exam - Neck Neck exam: Present: normal inspection, full ROM - Respiratory Respiratory exam: Present: normal lung sounds bilaterally. Absent: respiratory distress, wheezes, rales, rhonchi, stridor, chest wall tenderness, accessory muscle use, decreased breath sounds - Cardiovascular Cardiovascular Exam: Present: regular rate, normal rhythm, normal heart sounds. Absent: systolic murmur, diastolic murmur, rubs, gallop - GI/Abdominal GI/Abdominal exam: Present: soft, normal bowel sounds. Absent: distended, tenderness, guarding, rebound, rigid, hyperactive bowel sounds, hypoactive bowel sounds, organomegaly, mass - Extremities Exam Extremities exam: Present: normal inspection, full ROM, normal capillary refill - Back Exam Back exam: Present: normal inspection, full ROM. Absent: tenderness, CVA tenderness (R), CVA tenderness (L), muscle spasm, paraspinal tenderness, vertebral tenderness - Neurological Exam Neurological exam: Present: alert, oriented X3, CN II-XII intact, normal gait, reflexes normal - Psychiatric Psychiatric exam: Present: normal affect, normal mood - Skin Skin exam: Present: warm, dry, intact, normal color. Absent: rash ED Course Vital Signs 05/18/22 18:46 Temperature 97.9 F Pulse Rate 110 H Respiratory 16 Rate Blood Pressure 150/90 [Left] O2 Sat by Pulse 100 Oximetry ED Medical Decision Making - Lab Data Result diagrams: 05/18/22 20:33 05/18/22 20:33 - Medical Decision Making This is a 26-year-old male with a history of HIV, hypertension, migraine headaches, bipolar disorder, paranoid schizophrenia, GERD and asthma who presents to the ED with complaint of acute onset persistent intermittent a bdominal pain with intermittent constipation for the last 2 months. Patient states that the pain initially is crampy and gets relieved with bowel movement which he describes as hard. In the ED, patient is alert and oriented x3 and is not in any distress. All lab test results were reviewed and are all nonactionable. Patient was treated for pain in the ED and discharged home on medications and advised to follow-up with his primary care physician in 7 to 10 days for reevaluation or return to the ED immediately if symptoms get worse. - Differential Diagnosis constipation; GERD Critical care attestation.: If time is entered above; I have spent that time in minutes in the direct care of this critically ill patient, excluding procedure time. ED Disposition Clinical Impression: Constipation Qualifiers: Constipation type: other constipation type Qualified Code(s): K59.09 - Other constipation GERD (gastroesophageal reflux disease) Qualifiers: Esophagitis presence: esophagitis presence not specified Qualified Code(s): K21.9 - Gastro-esophageal reflux disease without esophagitis Abdominal pain Qualifiers: Abdominal location: unspecified location Qualified Code(s): R10.9 - Unspecified abdominal pain Disposition: HOME / SELF CARE / HOMELESS Is pt being admited?: No Does the pt Need Aspirin: No Condition: Stable Instructions: Abdominal Pain, Adult, [id number], Constipation, Adult, [id number], Gastroesophageal Reflux Disease, Adult, [id number] Additional Instructions: All lab test results were reviewed and are all nonactionable. Therefore take medication with food, drink plenty of fluids and follow-up with your primary care physician in 7 to 10 days for reevaluation. Return to the ED immediately if symptoms get worse. Prescriptions: Dicyclomine [Bentyl] 20 mg PO Q6H #30 tablet Docusate Sodium [Colace CAP] 100 mg PO BID PRN #60 capsule PRN Reason: Constipation Famotidine [Pepcid] 20 mg PO BID #60 tablet Referrals: [facility] [Provider Group] - 7-10 days Time of Disposition: 23:14 Print Language: SINHALA
== END 2022-05-18 23:40 | disposition home or self-care (01) ==
LOC: ED 18:37
DX: K59.00 Constipation, unspecified (principal); K21.9 Gastro-esophageal reflux disease without esophagitis; R10.9 Unspecified abdominal pain; I10 Essential (primary) hypertension
CPT/HCPCS: 36415; 80053; 83690; 85025; 99283